=== PATIENT | female | born 1945 | race Two or more races ===

== ENCOUNTER → 2017-04-14 | Outpatient (CLI) | payer MEDICARE, OTHER ==
[2017-04-14 13:30] VITALS: BP 132/62; PULSE 77; RESP 16
--- NOTE | 2017-04-14 13:59 | P.CONS ---
History of Present Illness - Reason for Consult Consult date: 04/14/17 - History of Present Illness This is a 71 years old female with a chronic history of severe low back pain, pain started to see years ago , she denies any initiating event, she reported the pain intensity increases over time, the pain is constant and increases with any activity, and improved with sitting, pain severe intensity of the pain 6/10 , increases with any activity, to 8-9/10, she denies any motor or sensory deficit, she denies any fever or night sweats, no numbness or tingling sensation ,, no change in the bowel movement or urination, pain localized mainly in the low back area, Past Medical History Past Medical History: Chest Pain / Angina, Diabetes Mellitus, GERD/Reflux, Hyperlipidemia, Hypertension Additional Past Medical History / Comment(s): recently tx for uti and stated last 2 days has had dirrhea 1-2 times a day, past stress test wnl,ulcers, arthritis, anxiety History of Any Multi-Drug Resistant Organisms: None Reported Past Surgical History: Section, Cholecystectomy, Hernia Repair, Hysterectomy Additional Past Surgical History / Comment(s): umbilical hernia repair, lt catarct removed-lens implant, laser eye sx, rt carpal tunnel release Past Anesthesia/Blood Transfusion Reactions: No Reported Reaction Past Psychological History: Anxiety Smoking Status: Never smoker Past Alcohol Use History: None Reported Past Drug Use History: None Reported - Past Family History Father Family Medical History: Diabetes Mellitus Mother Family Medical History: Diabetes Mellitus Medications and Allergies Home Medications Medication Instructions Recorded Confirmed Type Cholecalciferol [Vitamin D3] 5,000 unit PO DAILY 10/30/15 04/14/17 History Insulin Glargine [Lantus] 58 unit SQ HS 10/30/15 04/14/17 History Insulin Regular, Human [NovoLIN R] See Protocol SQ AC-TID 10/30/15 04/14/17 History Lovastatin [Mevacor] 20 mg PO HS 10/30/15 04/14/17 History metFORMIN HCL 1,000 mg PO BID 10/30/15 04/14/17 History Acetaminophen Tab [Tylenol Tab] 325 - 650 mg PO BID PRN 11/05/15 04/14/17 History Metoprolol Succinate [Toprol XL] 50 mg PO DAILY 11/05/15 04/14/17 History Omeprazole 20 mg PO DAILY 11/05/15 04/14/17 History Lisinopril [Prinivil] 10 mg PO DAILY #30 tab 11/06/15 04/14/17 Rx traMADol HCL [Ultram] 50 mg PO Q4HR PRN #30 tab 11/06/15 04/14/17 Rx Ibuprofen [Motrin] 800 mg PO DIRECTED PRN 04/14/17 04/14/17 History Allergies Allergy/AdvReac Type Severity Reaction Status Date / Time No Known Allergies Allergy Verified 04/14/17 13:10 Physical Exam Vitals: Vital Signs Pulse Resp BP 04/14/17 13:15 77 16 132/62 Intake and Output 04/13/17 04/14/17 04/14/17 22:59 06:59 14:59 Other: Weight 101.605 kg Patient Weight 04/15/17 06:59 Weight 101.605 kg Social history : not smoker , NO ETOH , NO Illegal drugs use . Review of Systems : 1- Constitutional : no chills , no fever , no night sweats , 2- Ears : no ear discharge , no change in hearing 3-Nose, Mouth ,Throat ; no bleeding gums, no sore throat , no epistaxis , 4-Cardiovascular : Denies chest pain, , no orthopnea , no palpitation 5-Respiratory : Denies cough , no dyspnea , no hemoptysis 6-Gastrointestinal :, no change in bowel habits , no coffee- ground emesis . 7-Genitourinary : No hematuria , no discharge , no incontinence, 8-Musculoskeletal : No gait dysfunction , report low back pain , 9- Neurological : no ataxia , no tremor , no sezure , 10-Psychatric , no suicidal ideation no hallucination 11- Endocrine : no cold intolerence , no polyuria , no polydypsia , 12-Hematologic : no easy bleeding , no easy brusing , 13-Allergic / immunology : no angioedema , no wheezing ,no allergic rhinitis 14-Integumentary : no brttle nails , no change hair / nails , no foot/leg ulcers . Physical Examinations : 1-Constitutional : Cooperative , not in acute distress . 2-HEENT : nech ; supple , no Lymphadenopathy , no Thyromegaly , :eyes , no icterus, no photophobia . ENT : , normal oropharynx , no Thrush 3- Respiratory : Chest clear to auscultations Bilaterally , no wheezing . 4- Cardiovascular : regular rate and rhythem , S1 , S2 , no S3 , no S4. 5- Gastrointestinal: abdomen soft no tenderness , no organomegally . 6- Genitourinary : Defferred . 7-Integumentary : No cellulitis , no ulcers , normal skin turgor , no cyanotic . 8- neurologic : Cranial nerve II to XII intact , no focal neurological deffecit 9-psychatric : alert , oriented X 3 , appropriate affect , intact judgment and insight . 10-Lymphatic : no Lymphadenopathy. 11- musculoskeltal: abnormal gait Lumber spine moter stegnth lower extremities ,thigh and legs 5/5 Right side , 5/5 Left side deep tendon reflexes : normal Knee Jerk , normal ankle Jerk positive lumber facet Loading Test Range of motion of the lumbar spine Flexion 60 degrees, extension 10 degrees strait leg raising test negative bilaterally Fabere test negative bilaterally Results Comments: MRI of the lumbar spine done 12/31/2016= L4 5 facet and severe central canal stenosis, L5-S1 facet arthropathyl, L3 4 bulging disc disease Assessment and Plan Assessment: Assessment and plan= axial low back pain secondary to multifactorial causes, lumbar degenerative disc disease lumbar spinal stenosis and lumbar spondylosis with lumbar facet arthropathy, clinically most of the pain is coming from the facetogenic component, patient could benefit from diagnostic medial branch block lumbar area L3/L4 5/L5-S1 redo the diagnostic block twice and if she had more than 50% improvement in her low back pain ,and we will schedule her to have radiofrequency ablation of the medial branch lumbar area, procedure risk and benefits and alternatives discussed with the patient she agreed with proceeding Time with Patient: Greater than 30
== END | disposition home or self-care (01) ==
LOC: PNWHC3 12:19
PROVIDERS: ATTEND Specialist
DX: G89.29 Other chronic pain (principal); M54.5 Low back pain; M48.061 Spinal stenosis, lumbar region without neurogenic claudication; M51.36 Other intervertebral disc degeneration, lumbar region; M47.816 Spondylosis without myelopathy or radiculopathy, lumbar region; M46.86 Other specified inflammatory spondylopathies, lumbar region; E11.9 Type 2 diabetes mellitus without complications; K21.9 Gastro-esophageal reflux disease without esophagitis; E78.5 Hyperlipidemia, unspecified; I10 Essential (primary) hypertension; F41.9 Anxiety disorder, unspecified; Z90.49 Acquired absence of other specified parts of digestive tract; Z90.710 Acquired absence of both cervix and uterus; Z98.890 Other specified postprocedural states; Z79.4 Long term (current) use of insulin; Z79.84 Long term (current) use of oral hypoglycemic drugs; Z79.1 Long term (current) use of non-steroidal anti-inflammatories (NSAID); Z79.891 Long term (current) use of opiate analgesic; Z79.899 Other long term (current) drug therapy
CPT/HCPCS: 99211

== ENCOUNTER 2017-05-10 06:10 | Day surgery (SDC) | payer MEDICARE, OTHER ==
[2017-05-05 11:37] VITALS: BMI 41.5
[~2017-05-10 06:10] MED LIST: LACTATED RINGERS 1,000 ML IV SCH
[2017-05-10 06:32] VITALS: RESP 18; TEMP 97.8
[2017-05-10 06:45] LABS: Glucose,Whole Blood 181 mg/dL (75-99)
[2017-05-10] MEDS ORDERED: LIDOCAINE 1% 20 ML VIAL (10MG/ML) FOR IV START INTRADERMA ONE (07:04)
--- NOTE | 2017-05-10 07:43 | P.PCN ---
Date of Procedure: 05/10/17 Surgeon: Jose Naik Description of Procedure: PREOPERATIVE DIAGNOSIS : 1- Lumbar spondylosis with Facet Arthropathy without myelopathy . 2- Lumber degenerative disc disease 3-morbid obesity POSTOPERATIVE DIAGNOSIS: 1- Lumbar spondylosis with Facet Arthropathy without myelopathy . 2- Lumber degenerative disc disease 3-morbid obesity PROCEDURE: Diagnostic bilateral L3 -4 , L4 -5 , and L5-S1 medial branch block under fluoroscopy ANESTHESIA: Local with 1% lidocaine; IV sedation with Versed 2 mg . EBL: Negligible COMPLICATION: None. PROCEDURE INDICATION: Chronic low back pain secondary to Facet arthropathy unresponsive to conservative treatment. PROCEDURE DESCRIPTION: the patient was seen and identified in the preop holding area , risks and benefits and possible complications of the procedure and alternatives were discussed with the patient, and the patient agreed to proceed with the procedure and signed the consent. IV was started and vital signs monitored during the procedure and fluoroscopy was used to maximize the benefit and accuracy of the needle placement, sedation was given to decrease patient anxiety, patient was taken to the procedure room and placed in prone position vital signs monitored. The patient was brought into the procedure room and placed in prone position. Skin was prepped with Chloraprep and draped in a sterile manner. Lidocaine 1 % was used to numb the skin up at the target points that were chosen as follows : at the L5-S1 level which corresponds to the dorsal ramus of L5 the target points were at the superior medial aspect of the sacral ala on each side of the spine on the AP view of fluoroscopy, and for theL2, L3 and L4 medial branches the target points were the connection between the transverse process and the superior to go process of L3, L4 and L5 respectively on the oblique views of fluoroscopy. I used 22-gauge 3-1/2 inch Quincke spinal needles for this procedure and after contacting bone at the target points mentioned above I injected 1 mL of a mixture of Kenalog 20 mg +5 MLS of Marcaine 0.5% PF . Patient tolerated procedure well. At the end of the procedure the needles removed and a bandage applied after the skin was cleaned the cleaning solution. patient was then taken to the recovery room in stable condition and monitored in the recovery room for 20-30 minutes and discharged home in stable condition after discharge criteria met .
[2017-05-10] MEDS ORDERED: IV FLUID CONTINUATION 1,000 ML IV ONE (07:46)
[2017-05-10 08:07] VITALS: BP 185/73; PULSE 71
--- NOTE | 2017-05-10 08:15 | FL ---
EXAMINATION TYPE: FL guided pain mgmt statistic DATE OF EXAM: 05/10/2017 FLUOROSCOPY Fluoroscopy time of 6 seconds was used during bilateral lumbar facet blocks. 3 image/s document/s th e procedure.
== END 2017-05-10 08:21 | disposition home or self-care (01) ==
LOC: ORPAIN 06:10
PROVIDERS: ATTEND Anesthesiology
DX: G89.29 Other chronic pain (principal); M47.816 Spondylosis without myelopathy or radiculopathy, lumbar region; M51.36 Other intervertebral disc degeneration, lumbar region; E66.01 Morbid (severe) obesity due to excess calories; Z68.41 Body mass index [BMI] 40.0-44.9, adult; E11.9 Type 2 diabetes mellitus without complications; I10 Essential (primary) hypertension
CPT/HCPCS: 64493; 64494; 64495; J2250; J3301; 99152

== ENCOUNTER → 2017-06-02 | Outpatient (CLI) | payer MEDICARE, OTHER ==
[2017-06-02 11:29] VITALS: BP 172/75; PULSE 77; RESP 16
--- NOTE | 2017-06-02 12:17 | P.PN ---
Progress Note - Text Progress Note Date: 06/02/17 Patient returns for followup for chronic back pain with radiation to both legs with numbness/tingling down to the toes. Patient recently underwent bilateral lumbar MBB, which provided some relief for two days 25% pain relief. Patient continues on no regular pain medications. Patient denies adverse drug effects from medications. Today, pt denies new-onset weakness, bowel/bladder incontinence, or any other signs or symptoms of cauda equina syndrome. There are no signs of acute intoxication, and no indications of medication diversion or overuse. In addition to above, 13-point review of systems is also negative for chest pain , shortness of breath, changes in vision, changes in hearing, new onset weakness , abdominal pain, diarrhea, extreme fatigue, malaise, fever, skin changes, homicidal or suicidal ideation, or bowel or bladder incontinence. Vital Signs: Reviewed in EMR Gen: WDWN, AAOx3, NAD HEENT: NCAT, EOMI, hearing grossly normal Pulm: resp unlabored Abd: soft, NT, ND Neck: supple, trachea midline ROM in flexion lumbar spine: reduced ROM in extension lumbar spine: reduced Lumbar paravertebral tenderness: + Facet loading: + bilateral, L > R SI joint tenderness: neg Yusuf's test: neg Straight leg raise: +RLE Lower extremity: decreased ROM dorsiflexion/plantarflexion strength, hip flexion/extension, and knee flexion/extension secondary to pain Neuro: CN II-XII grossly intact, muscle strength lower extremities PRESERVED Imaging: Reviewed in EMR Assessment: 1. lumbar spinal stenosis 2. lumbar spondylosis 3. chronic pain syndrome Plan: 1. Explanation: Opioid and psychological risk scores were reviewed. Diagnoses , prognoses, and multiple treatment options including but not limited to physical therapy, interventional therapies, adjuvant medical therapies, narcotic medication therapies, and surgery were discussed with the patient and all questions were answered to the patient's satisfaction. 2. Opioid agreement: no opioids prescribed today 3. Counseling: The patient was counseled extensively on BODY MASS INDEX, EXERCISE. Specifically, the patient was instructed regarding the importance of weight control, and exercise in the context of both chronic pain and overall health. 4. Procedures: LESI series L4-L5 if possible 5. Consultations: None 6. Investigations: None 7. Medications: none prescribed 8. Disposition: f/u for PQRS measures: 1-Patient's medications are documented in the chart. 2-Tobacco use is negative 3-Patient has not had a pneumococcal vaccine. 4-Advanced care planning discussed, patient unable to give. 5-Opioid contract NOT signed with the patient. 6-Pain positive, follow-up visit or procedure scheduled 7-Patient's blood pressure measured and documented, and patient will follow up with the primary care due to hypertension. 8-Patient's weight was measured, and body mass index ABOVE the normal limits, and counseling was done. Patient instructed to follow up with PCP. 9-Patient WAS NOT identified as an unhealthy alcohol user.
== END | disposition home or self-care (01) ==
LOC: PNWHC3 11:01
PROVIDERS: ATTEND Anesthesiology
DX: G89.4 Chronic pain syndrome (principal); M48.061 Spinal stenosis, lumbar region without neurogenic claudication; M47.816 Spondylosis without myelopathy or radiculopathy, lumbar region
CPT/HCPCS: 99211

== ENCOUNTER 2017-06-30 06:54 | Day surgery (SDC) | payer MEDICARE, OTHER ==
[2017-06-30] MEDS ORDERED: LIDOCAINE 1% 20 ML VIAL (10MG/ML) FOR IV START INTRADERMA ONE (07:48)
[2017-06-30 07:51] VITALS: RESP 16; TEMP 98
--- NOTE | 2017-06-30 08:22 | P.OP ---
Date of Procedure: 06/30/17 Surgeon: Timbo Nguyễn Description of Procedure: OPERATION: Lumbar epidural steroid injection under fluoroscopic guidance. PREOPERATIVE DIAGNOSES: 1. Lumbar radiculopathy. 2. [Lumbar facet arthropathy.] POSTOPERATIVE DIAGNOSES: 1. Lumbar radiculopathy 2. [Lumbar facet arthropathy]. COMPLICATIONS: None. ANESTHESIA: IV sedation with local infiltration. CONDITION: Stable. Fluoroscopy time: 2 seconds. Today is the first ,second , third lumbar epidural steroid injection for this patient with a history of low back pain. with radiation to the lower extremities , Procedure, risks and benefits discussed with the patient , including but not limited to risk of infection, bleeding ,nerve damage ,and not complete pain relief discussed with the patient and he agreed with proceeding. Sugar was 101. The risks of hyperglycemia were discussed the patient preoperatively. DESCRIPTION OF PROCEDURE: Patient taken to the operating room, placed in prone position. All standard monitors applied to the patient. Conscious sedation was given per hospital protocol. The lumbar spine was prepped and draped in the usual sterile fashion.. Then at L4-5 interlaminar space, local infiltration of the skin and subcutaneous tissue with lidocaine 1% 3 mL. Then a 20-gauge Tuohy needle advanced slowly under fluoroscopy. There was positive loss of resistance to normal saline. Then after negative aspiration, 40 mg of Depo-Medrol was then injected. Patient tolerated the procedure well without any complication. Patient was transferred to the recovery area in stable condition. Patient was then discharged with a escort car driver.
[2017-06-30] MEDS ORDERED: IV FLUID CONTINUATION 700 ML IV ONE (08:28)
--- NOTE | 2017-06-30 08:31 | FL ---
EXAMINATION TYPE: FL guided pain mgmt statistic DATE OF EXAM: 06/30/2017 HISTORY: Pain 1 sec fl time used during lumbar epidural 1 image scanned into pacs doctor mckeon
[2017-06-30 08:40] LABS: Glucose,Whole Blood 87 mg/dL (75-99)
[2017-06-30 08:47] VITALS: BP 142/48; PULSE 61
[2017-06-30 08:51] LABS: Glucose,Whole Blood 101 mg/dL (75-99)
== END 2017-06-30 09:12 | disposition home or self-care (01) ==
LOC: ORPAIN 06:54
PROVIDERS: ATTEND Pain Medicine Pain Medicine
DX: M54.16 Radiculopathy, lumbar region (principal); M46.96 Unspecified inflammatory spondylopathy, lumbar region; E11.9 Type 2 diabetes mellitus without complications
CPT/HCPCS: 62323; J2250; J1030; 99152

== ENCOUNTER → 2019-03-08 | Outpatient (CLI) | payer MEDICARE ==
--- NOTE | 2019-03-08 13:05 | XR ---
EXAMINATION TYPE: XR cervical spine comp DATE OF EXAM: 03/08/2019 COMPARISON: None HISTORY: 73-year-old female cervicalgia, increasing generalized neck pain TECHNIQUE: 6 views FINDINGS: No predental space widening or prevertebral soft tissue swelling. Degenerative change of the C1 dens articulation. The C6-C7 and more caudal levels are excluded by the patient's shoulders. Swimmer's vie w is also limited. More cephalad alignment is maintained. Facet and uncovertebral joint arthropathy. Moderate bony neuroforaminal narrowing on the left C6-C7 on both sides. Mild on the right at C3-C4, C 4-C5, and C5-C6. IMPRESSION: 1. C6-C7 and below is obscured by the patient's shoulders and not adequately assessed. The remaining alignment higher up is preserved. 2. Facet and uncovertebral joint arthropathy with variable neural foraminal stenoses as outlined suzy ace
== END | disposition home or self-care (01) ==
LOC: RADXRYALE 11:48
PROVIDERS: ATTEND Physician Assistant Medical
DX: M48.02 Spinal stenosis, cervical region (principal); M46.92 Unspecified inflammatory spondylopathy, cervical region
CPT/HCPCS: 72050

== ENCOUNTER → 2019-04-06 | Outpatient (CLI) | payer MEDICARE ==
--- NOTE | 2019-04-06 09:39 | MR ---
EXAMINATION TYPE: MR cervical spine wo con DATE OF EXAM: 04/06/2019 COMPARISON: HISTORY: neck pain TECHNIQUE: Multiplanar, multisequence images of the cervical spine were acquired. C2-C3: No evidence for degenerative disc disease. No disc bulge/herniation or protrusion. No Canal stenosis. Foramina are patent bilaterally. C3-C4: Mild central disc bulging capped by spur. Mild facet arthropathy. Mild central canal stenosis with no evidence of foraminal encroachment. C4-C5: Degenerative disc disease with disc herniation resulting in mild anterior compression spinal c ord. Hypertrophy of the ligamentum flavum contributes to moderate to severe canal stenosis. Facet art hropathy and uncovertebral joint hypertrophy with mild bilateral foraminal encroachment. C5-C6: Central disc herniation resulting in mild anterior compression the spinal cord. Could not excl ude a degree of abnormal signal within the spinal cord at this level. As results in canal stenosis. N eural foramina patent. C6-C7: Degenerative disc disease but no disc herniation or canal stenosis. Neural foramina patent. C7-T1: No evidence for degenerative disc disease. No disc bulge/herniation or protrusion. No Canal stenosis. Foramina are patent bilaterally. Cervical segments are intact. There is normal alignment. There are evidence of thyroid cysts noted. Assessment of abnormal signal in spinal cord limited due to motion. Suspicion for abnormal signal cor d at C5-C6 which could been the basis of compressive myelitis. Sagittal disc bulging or protrusions o f the thoracic spine noted. Cerebellar tonsils low-lying in position at the level the foramen magnum. IMPRESSION: 1. Multilevel degenerative disc disease with disc herniation at C4-5 resulting in severe canal stenos is and anterior compression of the spinal cord. 2. Central disc herniation C5-C6 results in mild anterior compressions of the spinal cord. Abnormal s ignal within the cord at this level is not excluded. Degree of compressive myelitis would be in the d ifferential diagnosis. 3. Central disc bulge or small protrusion C3-C4 with mild central canal stenosis. 4. Multiple thyroid nodules. 5. There appears to be evidence of sagittal thoracic spine disc bulging or protrusions. Recommend fol low-up thoracic spine MRI. 6. Low-lying cerebellar tonsils. A [place] level critical message alert has been initiated for DANIKA Lin via the [employer] Critical Results System on 04/06/2019 9:35 AM. This message alert has been sent to DANIKA Lin via the preferences provided by the clinician for the receipt of Radiology Critical Find ings. Message ID [id number].
== END | disposition home or self-care (01) ==
LOC: RADMRIMAIN 08:35
PROVIDERS: ATTEND Physician Assistant Medical
DX: M48.02 Spinal stenosis, cervical region (principal); M50.221 Other cervical disc displacement at C4-C5 level; M50.321 Other cervical disc degeneration at C4-C5 level; E04.2 Nontoxic multinodular goiter
CPT/HCPCS: 72141

== ENCOUNTER → 2020-06-18 | Outpatient (CLI) | payer MEDICARE ==
--- NOTE | 2020-06-18 14:50 | MR ---
EXAMINATION TYPE: MR lumbar spine wo con DATE OF EXAM: 06/18/2020 COMPARISON: 12/31/2016 HISTORY: 75-year-old female Chronic LBP, LLE radiculopathy TECHNIQUE: Multiplanar, multisequence images of the lumbar spine were acquired. FINDINGS: Vertebral body heights are preserved. Hypertrophic facet arthropathy mid to lower lumbar spine with degenerative grade 1 anterolisthesis at L4-L5 is unchanged. Mild multilevel degenerative disc disease with desiccated and bulging discs at multiple levels. Ligamentum flavum thickening throughout. 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 Mild heterogeneous marrow signal without suspicious bone marrow replacement. At T12-L1, mild bulging disc without significant canal or foraminal stenosis. At L1-L2, bulging disc with ligamentum flavum thickening. Changes result in moderate narrowing of the spinal canal, slightly progressed from 2017, with minimal inferior neural foraminal narrowing on bot h sides. At L2-L3, bulging disc with ligamentum flavum thickening and facet arthropathy. Changes result in mod erate to severe spinal canal stenosis, slightly progressed from 2017. Mild bilateral neuroforaminal n arrowing. At L3-L4, disc bulge with ligamentum flavum thickening and facet arthropathy. Changes result in moder ate to severe spinal canal stenosis, similar to prior. Moderate right and mild left neural foraminal stenosis. At L4-L5, advanced hypertrophic facet arthropathy with severe ligamentum flavum thickening, grade 1 a nterolisthesis, disc bulge. Changes result in severe focal spinal canal stenosis, relatively similar to prior exam. Moderate right and mild left neural foraminal stenosis. At L5-S1, facet arthropathy with a mild right neuroforaminal narrowing. No spinal canal stenosis. No prevertebral or paravertebral soft tissue abnormality seen. IMPRESSION: 1. Mild multilevel degenerative disc disease with desiccated and bulging discs. 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 2. Ligamentum flavum thickening and hypertrophic facet arthropathy. Degenerative grade 1 anterolisthe sis at L4-L5. 3. Changes result in a severe focal spinal canal stenosis at L4-L5, similar to prior. Moderate to sev ere spinal canal stenosis at L3-L4 is also similar. Moderate to severe canal narrowing at L2-L3 sligh tly progressed as is a moderate narrowing of the spinal canal at L1-L2. 4. Variable moderate neuroforaminal stenoses as outlined above, particularly on the right at L3-L4 an d L4-L5.
== END | disposition home or self-care (01) ==
LOC: RADMRIMAIN 12:28
PROVIDERS: ATTEND Orthopaedic Surgery Orthopaedic Surgery of the Spine
DX: M48.061 Spinal stenosis, lumbar region without neurogenic claudication (principal); M51.16 Intervertebral disc disorders with radiculopathy, lumbar region; M43.16 Spondylolisthesis, lumbar region; M47.26 Other spondylosis with radiculopathy, lumbar region; E66.9 Obesity, unspecified; M50.321 Other cervical disc degeneration at C4-C5 level; M47.812 Spondylosis without myelopathy or radiculopathy, cervical region; E11.9 Type 2 diabetes mellitus without complications; M16.0 Bilateral primary osteoarthritis of hip; M50.221 Other cervical disc displacement at C4-C5 level
CPT/HCPCS: 72148

== ENCOUNTER → 2020-08-12 | Outpatient (CLI) | payer MEDICARE ==
--- NOTE | 2020-08-12 16:40 | BD ---
EXAMINATION TYPE: Axial Bone Density DATE OF EXAM: 08/12/2020 COMPARISON: NONE CLINICAL HISTORY: Height: 61.5 IN Weight: 209 LBS FRAX RISK QUESTIONS: Secondary Osteoporosis: 3. Menopause before 45: YES PARTIAL HYST AE 31 RISK FACTORS HISTORY OF: Active: YES Diet low in dairy products/other sources of calcium: YES Postmenopausal woman: PARTIAL HYST AGE 31 Frequent falls: YES TRIP/STUMBLES MEDICATIONS: Additional Medications: VIT D, INSULIN, HIGH BLOOD PRESSURE MEDS, PAIN MEDS, EXAM MEASUREMENTS: Bone mineral densitometry was performed using the [employer] System. Bone mineral density as measured about the Lumbar spine is: ----- L1-L4(G/cm2): 1.315 T Score Values are as follows: ----- L2: 1.2 ----- L3: 0.9 ----- L4: 1.4 ----- L1-L4: 1.1 Bone mineral density BASELINE Bone mineral density about the R hip (g/cm2): 0.872 Bone mineral density about the L hip (g/cm2): 0.968 T Score values are as follows: -----R Neck: -1.2 -----L Neck: -0.5 -----R Total: -0.4 -----L Total: 0.3 Bone mineral density BASELINE IMPRESSION: Normal bone mineral density. NOTE: T-SCORE=SD OF THE YOUNG ADULT MEAN.
--- NOTE | 2020-08-16 11:02 | MM ---
Reason for exam: screening (asymptomatic). Last mammogram was performed 12 years and 6 months ago. History: Patient is postmenopausal. Took estrogen for 21 years beginning at age 39. Physical Findings: A clinical breast exam by your physician is recommended on an annual basis and results should be correlated with mammographic findings. MG 3D Screening Mammo W/Cad Bilateral CC and MLO view(s) were taken. Prior study comparison: February 24, 2008, bilateral digital screening mammogram. There are scattered fibroglandular densities. Bilateral calcifications unchanged. ASSESSMENT: Benign, BI-RAD 2 RECOMMENDATION: Routine screening mammogram of both breasts in 1 year.
== END | disposition home or self-care (01) ==
LOC: RADMAMWWP 11:11
PROVIDERS: ATTEND Family Medicine
DX: Z12.31 Encounter for screening mammogram for malignant neoplasm of breast (principal); Z78.0 Asymptomatic menopausal state; M81.8 Other osteoporosis without current pathological fracture
CPT/HCPCS: 77063; 77067; 77080

== ENCOUNTER → 2021-09-18 | Outpatient (CLI) | payer MEDICARE ==
--- NOTE | 2021-09-19 15:40 | MM ---
Reason for Exam: Screening (asymptomatic). Last mammogram was performed 1 year(s) and 1 month(s) ago. Patient History: Menarche at age 11. First Full-Term at age 16. Left ovary removed at age 39. Right ovary removed at age 39. Hysterectomy at age 39. Postmenopausal. Estrogen for 21 years from age 39 until age 59. Risk Values: Phyllis 5 year model risk: 1.4%. NCI Lifetime model risk: 2.8%. Prior Study Comparison: 10/13/2006 Bilateral Screening Mammogram, [facility]. 02/24/2008 Bilateral Screening Mammogram, [facility]. 08/12/2020 Bilateral Screening Mammogram, [facility]. Tissue Density: The breast tissue is heterogeneously dense. This may lower the sensitivity of mammography. Findings: Analyzed By CAD. There is no suspicious group of microcalcifications or new suspicious mass in either breast. Benign-appearing bilateral calcifications. No significant change from prior examination. Overall Assessment: Benign, BI-RAD 2 Management: Screening Mammogram of both breasts in 1 year. A clinical breast exam by your physician is recommended on an annual basis and results should be correlated with mammographic findings. Electronically signed and approved by: Jono Casarez D.O.
== END | disposition home or self-care (01) ==
LOC: RADMAMWWP 16:26
PROVIDERS: ATTEND Family Medicine
DX: Z12.31 Encounter for screening mammogram for malignant neoplasm of breast (principal); Z78.0 Asymptomatic menopausal state
CPT/HCPCS: 77063; 77067

== ENCOUNTER 2022-01-08 18:15 | Emergency (ER) | payer MEDICARE ==
[2022-01-08 18:32] VITALS: TEMP 98.2
[2022-01-08] MEDS ORDERED: ONDANSETRON 4 MG/2 ML VIAL IVP STA (18:46)
[2022-01-08] MEDS ORDERED: SODIUM CHLORIDE 0.9% 1,000 ML IV STA (18:46)
--- NOTE | 2022-01-08 18:49 | ED ---
General Adult HPI - General Chief complaint: Dizziness Stated complaint: Dizziness,Vomiting Time Seen by Provider: 01/08/22 18:20 Source: patient Mode of arrival: ambulatory Limitations: no limitations - History of Present Illness Initial comments: Dictation was produced using [employer] dictation software. please excuse any grammatical, word or spelling errors. Chief Complaint: 76-year-old male presents emergency department for dizziness and URI type symptoms History of Present Illness: Patient is a 76-year-old female presents emergency department for URI type symptoms for the last 3 days. Patient has had mild headache, fatigue, dizziness and diarrhea for the last 3 days. Patient was exposed her her son and her grandson will have had flulike symptoms. Patient has any chest pain shortness of breath. Denies any fever. Patient allegedly has been worked up outpatient for anemia. Daughter at the bedside reports that patient had low blood pressure at home. She states that the top number was 108. Patient has history of hypertension and 108 is very low for her. The ROS documented in this emergency department record has been reviewed and confirmed by me. Those systems with pertinent positive or negative responses have been documented in the HPI. All other systems are other negative and/or noncontributory. PHYSICAL EXAM: General Impression: Alert and oriented x3, not in acute distress HEENT: Normocephalic atraumatic, extra-ocular movements intact, pupils equal and reactive to light bilaterally, mucous membranes moist. Cardiovascular: Heart regular rate and rhythm Chest: Able to complete full sentences, no retractions, no tachypnea Abdomen: abdomen soft, non-tender, non-distended, no organomegaly Musculoskeletal: Pulses present and equal in all extremities, no peripheral edema Motor: no focal deficits noted Neurological: CN II-XII grossly intact, no focal motor or sensory deficits noted Skin: Intact with no visualized rashes Psych: Normal affect and mood ED course: 76-year-old female presents to the emergency department for URI type symptoms for the last 3 days. Vital signs upon arrival are within acceptable limits. Laboratory evaluation obtained. CBC unremarkable hemoglobin is 10.8 with surround her baseline. Metabolic panel is unremarkable. Abdominal labs negative. Influenza A positive. Patient observed in emergency department for approximately one hour and 45 minutes. Reevaluated bedside at 8:00 PM patient given fluids and anti-nausea medications. Patient also given Toradol. Patient is a amenable for discharge. Patient's candidate for Tamiflu given that she's been symptomatic for 3 days. Patient given dose today and prescription for the next 5 days My EKG interpretation: Ventricular rate 71, sinus rhythm,. 166, QS 98, QTC 400. No MO prolongation, no QTC prolongation, no ST or T-wave changes noted. EKG compared to to her first 2016 showing no changes. Overall, this EKG is unremarkable - Related Data Home Medications Medication Instructions Recorded Confirmed Cholecalciferol [Vitamin D3 (25 5,000 unit PO WEEKLY 10/30/15 06/30/17 Mcg = 1000 Iu)] Insulin Glargine [Lantus Vial] 58 unit SQ HS 10/30/15 06/30/17 Insulin Regular, Human [NovoLIN R] See Protocol SQ AC-TID 10/30/15 06/30/17 Lovastatin [Mevacor] 20 mg PO HS 10/30/15 06/30/17 metFORMIN HCL [Glucophage] 1,000 mg PO BID 10/30/15 06/30/17 Acetaminophen Tab [Tylenol Tab] 325 - 650 mg PO BID PRN 11/05/15 06/30/17 Omeprazole 20 mg PO DAILY 11/05/15 06/30/17 Ibuprofen [Motrin] 800 mg PO DIRECTED PRN 04/14/17 06/30/17 Methenamine Hippurate [Hiprex] 1 gm PO BID 05/05/17 06/30/17 lisinopriL [Prinivil] 20 mg PO QAM 05/05/17 06/30/17 Previous Rx's Medication Instructions Recorded traMADol HCL [Ultram] 50 mg PO Q4HR PRN #30 tab 11/06/15 Oseltamivir [Tamiflu] 75 mg PO Q12HR 5 Days #10 cap 01/08/22 Allergies Allergy/AdvReac Type Severity Reaction Status Date / Time No Known Allergies Allergy Verified 01/08/22 18:32 Review of Systems ROS Statement: Those systems with pertinent positive or pertinent negative responses have been documented in the HPI. ROS Other: All systems not noted in ROS Statement are negative. Past Medical History Past Medical History: Chest Pain / Angina, Diabetes Mellitus, GERD/Reflux, Hyperlipidemia, Hypertension Additional Past Medical History / Comment(s): CHRONIC UTI. Ulcers. Arthritis. Anxiety. History of Any Multi-Drug Resistant Organisms: None Reported Past Surgical History: Section, Cholecystectomy, Hernia Repair, Hysterectomy Additional Past Surgical History / Comment(s): Umbilical hernia repair. Lt catarct removed-lens implant. Laser eye sx. Rt carpal tunnel release Past Anesthesia/Blood Transfusion Reactions: No Reported Reaction Past Psychological History: Anxiety Smoking Status: Never smoker Past Alcohol Use History: None Reported Past Drug Use History: None Reported - Past Family History Father Family Medical History: Diabetes Mellitus Mother Family Medical History: No Reported History General Exam Limitations: no limitations Course Vital Signs 01/08/22 01/08/22 18:28 19:25 Temperature 98.2 F Pulse Rate 71 70 Respiratory 18 18 Rate Blood Pressure 169/65 166/62 O2 Sat by Pulse 98 97 Oximetry Medical Decision Making - Lab Data Result diagrams: 01/08/22 19:16 01/08/22 19:16 Lab Results 01/08/22 01/08/22 01/08/22 Range/Units 18:33 19:16 19:16 WBC 7.5 (3.8-10.6) k/uL RBC 3.70 L (3.80-5.40) m/uL Hgb 10.8 L (11.4-16.0) gm/dL Hct 33.4 L (34.0-46.0) % MCV 90.4 D (80.0-100.0) fL MCH 29.3 (25.0-35.0) pg MCHC 32.4 (31.0-37.0) g/dL RDW 13.3 (11.5-15.5) % Plt Count 225 (150-450) k/uL MPV 8.5 Neutrophils % 70 % Lymphocytes % 20 % Monocytes % 5 % Eosinophils % 2 % Basophils % 0 % Neutrophils # 5.3 (1.3-7.7) k/uL Lymphocytes # 1.5 (1.0-4.8) k/uL Monocytes # 0.4 (0-1.0) k/uL Eosinophils # 0.1 (0-0.7) k/uL Basophils # 0.0 (0-0.2) k/uL Sodium 134 L (137-145) mmol/L Potassium 5.1 (3.5-5.1) mmol/L Chloride 103 (98-107) mmol/L Carbon Dioxide 21 L (22-30) mmol/L Anion Gap 10 mmol/L BUN 31 H (7-17) mg/dL Creatinine 1.50 H (0.52-1.04) mg/dL Est GFR (CKD-EPI)AfAm 39 (>60 ml/min/1.73 sqM) Est GFR (CKD-EPI)NonAf 34 (>60 ml/min/1.73 sqM) Glucose 278 H (74-99) mg/dL Calcium 9.6 (8.4-10.2) mg/dL Total Bilirubin 0.2 (0.2-1.3) mg/dL AST 24 (14-36) U/L ALT 22 (4-34) U/L Alkaline Phosphatase 81 (38-126) U/L Total Protein 7.3 (6.3-8.2) g/dL Albumin 4.5 (3.5-5.0) g/dL Influenza Type A (PCR) Detected A (Not Detectd) Influenza Type B (PCR) Not Detected (Not Detectd) RSV (PCR) Not Detected (Not Detectd) SARS-CoV-2 (PCR) Not Detected (Not Detectd) Disposition Clinical Impression: Influenza Disposition: HOME SELF-CARE Condition: Fair Instructions (If sedation given, give patient instructions): Influenza (ED) Prescriptions: Oseltamivir [Tamiflu] 75 mg PO Q12HR 5 Days #10 cap Is patient prescribed a controlled substance at d/c from ED?: No Referrals: Nonstaff,Physician [Primary Care Provider] - 1-2 days Time of Disposition: 20:03
[2022-01-08 19:31] LABS: Basophils % (A) 0 %; Eosinophils # (A) 0.1 k/uL (0-0.7); Eosinophils % (A) 2 %; HCT 33.4 % (34.0-46.0); HGB 10.8 gm/dL (11.4-16.0); Lymphocytes # (A) 1.5 k/uL (1.0-4.8); Lymphocytes % (A) 20 %; MCH 29.3 pg (25.0-35.0); MCHC 32.4 g/dL (31.0-37.0); Mean Platelet Volume 8.5; Monocytes # (A) 0.4 k/uL (0-1.0); Monocytes % (A) 5 %; Neutrophils # (A) 5.3 k/uL (1.3-7.7); Neutrophils % (A) 70 %; Platelet Count 225 k/uL (150-450); RDW 13.3 % (11.5-15.5); WBC 7.5 k/uL (3.8-10.6)
[2022-01-08 19:41] LABS: Albumin 4.5 g/dL (3.5-5.0); Calcium 9.6 mg/dL (8.4-10.2); Potassium 5.1 mmol/L (3.5-5.1); Total Bilirubin 0.2 mg/dL (0.2-1.3); Total Protein 7.3 g/dL (6.3-8.2)
[2022-01-08 19:43] LABS: MCV 90.4 fL (80.0-100.0)
[2022-01-08] MEDS ORDERED: OSELTAMIVIR 75 MG CAP PO STA (19:50)
[2022-01-08] MEDS ORDERED: KETOROLAC 15 MG/ML 1 ML VIAL IVP STA (20:01)
[2022-01-08 20:56] VITALS: BP 168/69; PULSE 76; RESP 16
== END 2022-01-08 20:55 | disposition home or self-care (01) ==
LOC: EC 18:15
DX: J11.1 Influenza due to unidentified influenza virus with other respiratory manifestations (principal); E11.9 Type 2 diabetes mellitus without complications; I10 Essential (primary) hypertension; E78.5 Hyperlipidemia, unspecified; K21.9 Gastro-esophageal reflux disease without esophagitis; F41.9 Anxiety disorder, unspecified; Z79.4 Long term (current) use of insulin; Z79.899 Other long term (current) drug therapy; Z20.822 Contact with and (suspected) exposure to COVID-19
CPT/HCPCS: 36415; 93005; 80053; 85025; 87636; 99284; 96374; 96375; 96361 ×2; J2405; J1885; 99283

== ENCOUNTER 2022-01-16 06:05 | Day surgery (SDC) | payer MEDICARE ==
[2022-01-15 11:37] VITALS: BMI 38.2
[2022-01-16 06:32] VITALS: RESP 16; TEMP 97
[2022-01-16] MEDS ORDERED: LIDOCAINE 1% (10MG/ML) FOR IV START INTRADERMA ONE (06:32)
[2022-01-16 06:44] LABS: Glucose,Whole Blood 83 mg/dL (70-110)
[2022-01-16] MEDS ORDERED: LIDOCAINE 2% INJ 20 MG/ML (2 ML VIAL) ONE (07:00)
[2022-01-16] MEDS ORDERED: PROPOFOL 10 MG/ML 20 ML VIAL IV ONE (07:00)
--- NOTE | 2022-01-16 07:21 | P.PCN ---
Date of Procedure: 01/16/22 Procedure(s) Performed: Brief history: Patient is a pleasant 76-year-old female scheduled for an elective upper endoscopy as well as colonoscopy as a part of evaluation of GERD and Hemoccult- positive stool. Procedure performed: Esophagogastroduodenoscopy with biopsy Colonoscopy with biopsy Preoperative diagnosis: GERD Hemoccult-positive stool Anesthesia: [facility] [place] Procedure: After informed consent was obtained from the patient was brought into the endoscopy unit and IV sedation was administered by anesthesia under continuous monitoring. Initially upper endoscopy was done. The Olympus GF 160 video endoscope was inserted inserted into the mouth and esophagus intubated without any difficulty and was gradually advanced into the stomach and duodenum and carefully examined. The bulb and second part of the duodenum appeared normal. The scope was then withdrawn into the stomach adequately insufflated with air and upon careful examination the antrum had mild gastritis and biopsies were done from this area. The body, cardia and fundus appeared normal. The scope was then withdrawn into the esophagus. The GE junction was located at 40 cm to the incisors. It appeared regular with no erythema erosions or ulcerations. Rest of the esophagus appeared normal. Patient tolerated the procedure well. At this time the patient continued to remain sedation. Initial digital rectal examination was normal. Olympus CF 160 video colonoscope was then inserted into the rectum and gradually advanced to the cecum without any difficulty. Careful examination was performed as the scope was gradually being withdrawn. The prep was excellent. The cecum, ascending colon, appeared normal. In the transverse colon there was a 3 mm sessile polyp removed by cold biopsy. Rest of the transverse colon, descending colon, sigmoid colon and rectum appeared normal. Retroflexion was performed in the rectum and no lesions were noted. Patient tolerated the procedure well. Impression: 1. Upper endoscopy revealed mild antral gastritis but no evidence of esophagitis or peptic ulcer disease 2. Colonoscopy revealed a 3 mm transverse colon polyp status post cold biopsy and the rest of the colon appeared normal. Recommendations: Findings of this examination were discussed with the patient as well as her family. She was advised to follow with the biopsy results. If the biopsies reveal adenoma she can have episodes in 5 years. In the meantime she'll continue with omeprazole 20 mg daily and follow antireflux measures.
[2022-01-16 07:44] VITALS: BP 119/64; PULSE 79
== END 2022-01-16 08:23 | disposition home or self-care (01) ==
LOC: ORWHC2ENDO 06:05
PROVIDERS: ATTEND Internal Medicine Gastroenterology
DX: K63.5 Polyp of colon (principal); K29.50 Unspecified chronic gastritis without bleeding; K21.9 Gastro-esophageal reflux disease without esophagitis
CPT/HCPCS: 88305; 45380; 43239; J2704; J2001

== ENCOUNTER → 2022-06-13 | Outpatient (CLI) | payer MEDICARE ==
--- NOTE | 2022-06-13 10:11 | MR ---
EXAMINATION TYPE: MR lumbar spine wo con DATE OF EXAM: 06/13/2022 COMPARISON: MRI lumbar spine 06/18/2020 HISTORY: Low back pain TECHNIQUE: Multiplanar, multisequence images of the lumbar spine were acquired without IV contrast. FINDINGS: Lumbar segments are intact. No paraspinal masses are identified. Conus medullaris has a normal appe arance. Stable grade 1 anterolisthesis of L4 on L5. 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 T12-L1: No significant central canal or neural foraminal stenosis. L1-L2: Broad-based disc bulge with ligamentum flavum buckling resulting in moderate central canal gallo nosis which is similar to prior exam. Mild bilateral neural foraminal stenosis. L2-L3: Broad-based disc bulge with ligamentum flavum buckling and facet arthropathy redemonstrated. R esults in moderate to severe spinal canal stenosis which is stable to prior examination. Mild bilater al neural foraminal narrowing. L3-L4: Disc bulge with facet arthropathy and ligamentum flavum buckling demonstrated. Results in mode rate to severe spinal canal stenosis which is similar to prior exam. Moderate right and mild left ritu ral foraminal stenosis. L4-L5: Grade 1 anterolisthesis with uncovering of the disc. Broad-based disc bulge with advanced hype rtrophic facet arthropathy and ligamentum flavum buckling redemonstrated. Results in severe focal spi nal canal stenosis which is similar to prior exam. Moderate right and mild left neural foraminal sten osis. L5-S1: No canal stenosis is present. No disc herniation. Ligamentum flavum buckling redemonstrated. Bilateral facet arthropathy with mild right neural foraminal stenosis. The left neural foramen is pat ent. IMPRESSION: * Overall similar examination to prior MRI lumbar spine on 06/18/2020. * Moderate multilevel degenerative disc disease redemonstrated with multilevel ligament flavum buckl ing and facet arthropathy. * Similar severe focal spinal stenosis at L4-L5, moderate to severe spinal canal stenosis at L3-L4 a nd moderate to severe spinal canal stenosis at L2-L3 and moderate spinal canal stenosis at L1-L2. * Varying degrees of neural foraminal stenosis is described above.
== END | disposition home or self-care (01) ==
LOC: RADMRIMAIN 09:05
PROVIDERS: ATTEND Orthopaedic Surgery Orthopaedic Surgery of the Spine
DX: M51.36 Other intervertebral disc degeneration, lumbar region (principal); M99.73 Connective tissue and disc stenosis of intervertebral foramina of lumbar region
CPT/HCPCS: 72148

== ENCOUNTER → 2022-09-30 | Outpatient (CLI) | payer MEDICARE ==
--- NOTE | 2022-10-01 16:20 | MM ---
Reason for Exam: Screening (asymptomatic). Last mammogram was performed 1 year(s) and 1 month(s) ago. Patient History: Menarche at age 11. First Full-Term at age 16. Left ovary removed at age 39. Right ovary removed at age 39. Hysterectomy at age 39. Postmenopausal. Estrogen for 21 years from age 39 until age 59. Risk Values: Phyllis 5 year model risk: 1.4%. NCI Lifetime model risk: 2.7%. Prior Study Comparison: 02/24/2008 Bilateral Screening Mammogram, [facility]. 08/12/2020 Bilateral Screening Mammogram, [facility]. 09/18/2021 Bilateral MG 3D screening mammo w/cad, [facility]. Tissue Density: The breast tissue is heterogeneously dense. This may lower the sensitivity of mammography. Findings: Analyzed By CAD. Benign vascular and secretory calcifications on both sides redemonstrated. No significant change from prior exams. Overall Assessment: Benign, BI-RAD 2 Management: Screening Mammogram of both breasts in 1 year. . Patient should continue monthly self-breast exams. A clinical breast exam by your physician is recommended on an annual basis. This exam should not preclude additional follow-up of suspicious palpable abnormalities. Note on Phyllis scores and lifetime risk: 1. A Phyllis score greater than 3% is considered moderate risk. If this is the case, consider specialist referral to assess eligibility for a risk reducing agent. 2. If overall lifetime risk for the development of breast cancer is 20% or higher, the patient may qualify for future screening with alternating mammogram and breast MRI. Electronically signed and approved by: Vipin Rios M.D. Radiologist
== END | disposition home or self-care (01) ==
LOC: RADMAMWWP 11:02
PROVIDERS: ATTEND Family Medicine
DX: Z12.31 Encounter for screening mammogram for malignant neoplasm of breast (principal); Z78.0 Asymptomatic menopausal state
CPT/HCPCS: 77063; 77067

== ENCOUNTER 2022-12-18 01:22 | Observation (INO) | payer MEDICARE, OTHER ==
[2022-12-18 02:15] LABS: Basophils % (A) 0 %; Eosinophils # (A) 0.2 k/uL (0-0.7); Eosinophils % (A) 3 %; HCT 36.6 % (34.0-46.0); HGB 11.9 gm/dL (11.4-16.0); Lymphocytes # (A) 2.4 k/uL (1.0-4.8); Lymphocytes % (A) 33 %; MCH 29.7 pg (25.0-35.0); MCHC 32.5 g/dL (31.0-37.0); MCV 91.2 fL (80.0-100.0); Mean Platelet Volume 8.2; Monocytes # (A) 0.5 k/uL (0-1.0); Monocytes % (A) 6 %; Neutrophils # (A) 4.2 k/uL (1.3-7.7); Neutrophils % (A) 55 %; Platelet Count 223 k/uL (150-450); RBC 4.01 m/uL (3.80-5.40); RDW 13.2 % (11.5-15.5); WBC 7.5 k/uL (3.8-10.6)
[2022-12-18 02:17] LABS: ALT 25 U/L (4-34); AST 29 U/L (14-36); African American GFR (CKD) 89 (>60 ml/min/1.73 sqM); Albumin 4.1 g/dL (3.5-5.0); Alkaline Phosphatase 76 U/L (38-126); Anion Gap 9 mmol/L; Blood Urea Nitrogen 23 mg/dL (7-17); Calcium 9.9 mg/dL (8.4-10.2); Carbon Dioxide 22 mmol/L (22-30); Chloride 108 mmol/L (98-107); Glucose 178 mg/dL (74-99); Magnesium 1.8 mg/dL (1.6-2.3); Non-African American GFR(CKD) 77 (>60 ml/min/1.73 sqM); Sodium 139 mmol/L (137-145); Total Bilirubin 0.3 mg/dL (0.2-1.3); Total Protein 7.3 g/dL (6.3-8.2)
[2022-12-18 02:20] LABS: Partial Thromboplastin Time 23.7 sec (22.0-30.0); Prothrombin Time 10.7 sec (10.0-12.5)
[2022-12-18 02:25] LABS: NT-Pro-B-Type Natriuretic Pept 341 pg/mL
--- NOTE | 2022-12-18 03:13 | ED ---
Chest Pain HPI - General Chief Complaint: Chest Pain Stated Complaint: Chest Tightness, High BP Time Seen by Provider: 12/18/22 01:30 Source: patient Mode of arrival: ambulatory Limitations: no limitations - History of Present Illness Initial Comments: 77-year-old female past medical history of hypertension, hyperlipidemia, diabetes who presents to the emergency department reporting chest pain. States her pain started around 11 PM while watching TV. Describes it as a pressure sensation in the middle portion of her chest. Denies associated shortness of breath. No nausea or vomiting. No ripping or tearing sensation to her back. Denies any fevers. No chills or cough. Denies previous cardiac history. Pain was present for approximately an hour before it self resolved. She did not take anything for her pain. She did measure her blood pressure at home and noted it to be significantly high. She does take lisinopril twice daily. Denies any missed doses. No other alleviating, resuscitating or modifying factors - Related Data Home Medications Medication Instructions Recorded Confirmed Insulin Glargine [Lantus Vial] 58 unit SQ DAILY 10/30/15 12/18/22 Lovastatin [Mevacor] 20 mg PO HS 10/30/15 12/18/22 Omeprazole 20 mg PO DAILY 11/05/15 12/18/22 Methenamine Hippurate [Hiprex] 1 gm PO BID 05/05/17 12/18/22 Cholecalciferol [Vitamin D3 (25 25 mcg PO DAILY 12/18/22 12/18/22 Mcg = 1000 Iu)] Ergocalciferol [Vitamin D2 (1250 1,250 mcg PO Q7D 12/18/22 12/18/22 Mcg = 28427 Iu)] Gabapentin [Neurontin] 300 mg PO BID 12/18/22 12/18/22 allopurinoL 200 mg PO HS 12/18/22 12/18/22 Previous Rx's Medication Instructions Recorded amLODIPine [Norvasc] 10 mg PO DAILY 30 Days #30 tab 12/19/22 lisinopriL [Zestril] 20 mg PO HS 30 Days #30 tab 12/19/22 Allergies Allergy/AdvReac Type Severity Reaction Status Date / Time No Known Allergies Allergy Verified 12/18/22 07:18 Review of Systems ROS Statement: Those systems with pertinent positive or pertinent negative responses have been documented in the HPI. ROS Other: All systems not noted in ROS Statement are negative. Past Medical History Past Medical History: Chest Pain / Angina, Diabetes Mellitus, GERD/Reflux, Hyperlipidemia, Hypertension Additional Past Medical History / Comment(s): CHRONIC UTI. Ulcers. Arthritis. Anxiety. History of Any Multi-Drug Resistant Organisms: None Reported Past Surgical History: Section, Cholecystectomy, Hernia Repair, Hysterectomy Additional Past Surgical History / Comment(s): Umbilical hernia repair. Lt catarct removed-lens implant. Laser eye sx. Rt carpal tunnel release Past Anesthesia/Blood Transfusion Reactions: No Reported Reaction Past Psychological History: Anxiety Smoking Status: Never smoker Past Alcohol Use History: None Reported Past Drug Use History: None Reported - Past Family History Father Family Medical History: Diabetes Mellitus Mother Family Medical History: No Reported History General Exam Limitations: no limitations General appearance: alert, in no apparent distress Head exam: Present: atraumatic, normocephalic, normal inspection Eye exam: Present: normal appearance, PERRL, EOMI. Absent: scleral icterus, conjunctival injection, periorbital swelling ENT exam: Present: normal exam, mucous membranes moist Neck exam: Present: normal inspection. Absent: tenderness, meningismus, lymphadenopathy Respiratory exam: Present: normal lung sounds bilaterally. Absent: respiratory distress, wheezes, rales, rhonchi, stridor Cardiovascular Exam: Present: regular rate, normal rhythm, normal heart sounds. Absent: systolic murmur, diastolic murmur, rubs, gallop, clicks GI/Abdominal exam: Present: soft, normal bowel sounds. Absent: distended, tenderness, guarding, rebound, rigid Extremities exam: Present: normal inspection, full ROM, normal capillary refill. Absent: tenderness, pedal edema, joint swelling, calf tenderness Back exam: Present: normal inspection Neurological exam: Present: alert, oriented X3, CN II-XII intact Psychiatric exam: Present: normal affect, normal mood Skin exam: Present: warm, dry, intact, normal color. Absent: rash Course Vital Signs 12/18/22 12/18/22 12/18/22 01:26 03:18 03:30 Temperature 98.2 F Pulse Rate 86 69 Respiratory 18 18 Rate Blood Pressure 224/71 182/68 178/68 O2 Sat by Pulse 98 98 Oximetry 12/18/22 12/18/22 12/18/22 06:00 07:15 09:51 Temperature 97.8 F 97.7 F Pulse Rate 68 65 67 Respiratory 16 16 18 Rate Blood Pressure 160/63 168/65 155/78 O2 Sat by Pulse 98 97 96 Oximetry 12/18/22 14:38 Temperature Pulse Rate 73 Respiratory 18 Rate Blood Pressure 179/73 O2 Sat by Pulse 97 Oximetry Chest Pain MDM - MDM Was pt. sent in by a medical professional or institution (, SAMANTHA, LEAD DATA ENTRY OPERATOR, urgent care, hospital, or [place] health care facility...) When possible be specific @ -No Did you speak to anyone other than the patient for history (EMS, parent, family, police, friend...)? What history was obtained from this source @ -Spoke with the patient's daughter Did you review nursing and triage notes (agree or disagree)? Why? @ -I reviewed and agree with nursing and triage notes Were old charts reviewed (outside hosp., previous admission, EMS record, old EK G, old radiological studies, urgent care reports/EKG's, [place] health care facility records)? Report findings @ -No old charts were reviewed Differential Diagnosis (chest pain, altered mental status, abdominal pain women, abdominal pain men, vaginal bleeding, weakness, fever, dyspnea, syncope, headache, dizziness, GI bleed, back pain, seizure, CVA, palpatations, mental health, musculoskeletal)? @ -Differential Chest Pain: Stable Angina, Unstable Angina, STEMI, NSTEMI Aortic Dissection, Pneumothorax, Musculoskeletal, Esophageal Spasm GERD, Cholecystitis, Pancreatitis, Zoster, this is not meant to be an all-inclusive list. EKG interpreted by me (3pts min.). @ -Yes and demonstrates sinus rhythm with PVCs rate of 89. DE interval 153. QRS 101. QTC of 411. No acute ST segment elevations or depressions X-rays interpreted by me (1pt min.). @ -Yes and demonstrates no acute intrathoracic process CT interpreted by me (1pt min.). @ -None done U/S interpreted by me (1pt. min.). @ -None done What testing was considered but not performed or refused? (CT, X-rays, U/S, labs)? Why? @ -None What meds were considered but not given or refused? Why? @ -None Did you discuss the management of the patient with other professionals (professionals i.e. , PA, LEAD DATA ENTRY OPERATOR, lab, RT, psych nurse, licensed social worker, investigation division sergeant, teacher, public affairs officer, special education case manager)? Give summary @ -Spoke with Dr. Staples who accepted admission Was smoking cessation discussed for >3mins.? @ -No Was critical care preformed (if so, how long)? @ -No Were there social determinants of health that impacted care today? How? (Homelessness, low income, unemployed, alcoholism, drug addiction, transportation, low edu. Level, literacy, decrease access to med. care, senior living, rehab)? @ -No Was there de-escalation of care discussed even if they declined (Discuss DNR or withdrawal of care, Hospice)? DNR status @ -No What co-morbidities impacted this encounter? (DM, HTN, Smoking, COPD, CAD, Cancer, CVA, ARF, Chemo, Hep., AIDS, mental health diagnosis, sleep apnea, morbid obesity)? @ -Hypertension Was patient admitted / discharged? Hospital course, mention meds given and route, prescriptions, significant lab abnormalities, going to OR and other pertinent info. @ -Upon arrival patient was placed into room 6. Thorough history and physical exam was performed. She is placed on continuous pulse ox and cardiac monitoring. 12-lead EKG was obtained. Laboratory studies were conducted. Chest x-ray was performed. Results are discussed with the patient and her daughter. Recommended admission for accelerated hypertension and chest pain. Patient was agreeable to this. Spoke with Dr. Staples who agreed to admit the patient Undiagnosed new problem with uncertain prognosis? @ -Yes Drug Therapy requiring intensive monitoring for toxicity (Heparin, Nitro, Insulin, Cardizem)? @ -No Were any procedures done? @ -No Diagnosis/symptom? @ -Acute chest pain, accelerated hypertension Acute, or Chronic, or Acute on Chronic? @ -Acute Uncomplicated (without systemic symptoms) or Complicated (systemic symptoms)? @ -Complicated Side effects of treatment? @ -No Exacerbation, Progression, or Severe Exacerbation? @ -No Poses a threat to life or bodily function? How? (Chest pain, [place], [place], pneumonia, PE, COPD, DKA, ARF, appy, cholecystitis, CVA, Diverticulitis, Homicidal, Suicidal, threat to staff... and all critical care pts) @ -No Disposition Clinical Impression: Chest pain, Accelerated hypertension Disposition: ADMITTED IP TO THIS HOSP Condition: Stable Is patient prescribed a controlled substance at d/c from ED?: No Time of Disposition: 03:30 Decision to Admit Reason: Admit from EC Decision Date: 12/18/22 Decision Time: 03:30
[2022-12-18] MEDS ORDERED: NALOXONE 0.4 MG/ML 1 ML VIAL IV PRN (03:30)
[2022-12-18] MEDS ORDERED: hydrALAZINE HCL 20 MG/ML 1 ML VIAL IVP STA (03:32)
[2022-12-18] MEDS ORDERED: ASPIRIN 81 MG PO STA (04:57)
[2022-12-18] MEDS ORDERED: MELATONIN 5 MG TABLET PO ONE (05:08)
[2022-12-18] MEDS ORDERED: cloNIDine HCL 0.1 MG TAB PO PRN (06:28)
[2022-12-18] MEDS ORDERED: DEXTROSE 50% SYRINGE 50 ML IVP PRN ×2 (06:28)
--- NOTE | 2022-12-18 06:37 | P.HPIM ---
History of Present Illness H&P Date: 12/18/22 Chief Complaint: Chest pain 77-year-old female diabetes mellitus, hypertension Patient coming in for evaluation of a sudden onset chest pain that started while resting doing nothing. she was watching TV around 11 PM as she started to go to be and lay down, she started feeling pressure retrosternally nonradiating denies any associated nausea vomiting shortness of breath palpitations or profuse sweating. She denies any fevers chills upper respiratory coughing and runny nose denies any known sick contacts. She denies any cardiac history in the past denies any cardiac workup in the past. she does report GERD and recurrent issues related to her stomach, but currently denies any stomach problems, and claims that usually feels different. she denies any exercise induced chest pain before. Patient denies any recent travel hospital stay or active diagnoses of cancer she denies any history of blood clots. She denies any trauma to the chest She reports that pain resolved on its own after about an hour however when she was checking her blood pressure she found significantly elevated she got alarmed decided to come in for evaluation Patient denies any tobacco smoking and illicit drugs or alcohol review of systems Pertinent positives as noted in HPI. All other systems were reviewed and are negative on exam Constitutional: No acute distress, conversant, pleasant Eyes: Anicteric sclerae, moist conjunctiva, Pupils equal round reactive to light ENMT: NC/AT Oropharynx clear, no erythema, or exudates Neck: Supple, no masses, or JVD No carotid bruits No thyromegaly Lungs: Clear to auscultation Clear to percussion Normal respiratory effort, no accessory muscle use Cardiovascular: Heart regular in rate and rhythm, No murmurs, gallops, or rubs No peripheral edema Abdominal: Soft Nontender, no guarding, rebound or rigidity Abdomen moving with respiration Normoactive bowel sounds No hepatomegaly, No splenomegaly No palpable mass No abdominal wall hernia noted Extremities: No digital cyanosis No clubbing Pedal pulses intact and symmetrical Radial pulses intact and symmetrical No calf tenderness Psychiatric: Alert and oriented to person, place and time Appropriate affect fair judgement Neuro Muscles Strength 5/5 in all 4 extremities Sensation to light touch grossly present throughout Cranial nerves II-XII grossly intact Lymphatics: no palpable cervical or supraclavicular lymph nodes Assessment and plan 77-year-old female with diabetes mellitus and hypertension coming in for chest pain and uncontrolled blood pressure discussed the case with the adductor accepted the admission for atypical chest pain with malignant hypertension with anticipated length of stay less than 2 midnights Malignant hypertension with chest pain Troponins negative EKG no acute ST changes Blood pressure improved with IV pushes of hydralazine when necessary Continue to trend troponins Cardiac monitoring Monitor vital signs Resume lisinopril Clonidine when necessary for systolic blood pressure more than 180 Cardiology consult Continue with aspirin and statin Checks x-ray no acute pathology EKG normal sinus rhythm with frequent PVCs Blood work overall unremarkable white count 7.5 hemoglobin 11.9 Sodium 139 potassium 5 bun 23 creatinine 0.75 Diabetes mellitus Continue with insulin sliding scale GERD PPI Full code DVT prophylaxis heparin subcu 3 times a day Past Medical History Past Medical History: Chest Pain / Angina, Diabetes Mellitus, GERD/Reflux, Hyperlipidemia, Hypertension Additional Past Medical History / Comment(s): CHRONIC UTI. Ulcers. Arthritis. Anxiety. History of Any Multi-Drug Resistant Organisms: None Reported Past Surgical History: Section, Cholecystectomy, Hernia Repair, Hysterectomy Additional Past Surgical History / Comment(s): Umbilical hernia repair. Lt catarct removed-lens implant. Laser eye sx. Rt carpal tunnel release Past Anesthesia/Blood Transfusion Reactions: No Reported Reaction Past Psychological History: Anxiety Smoking Status: Never smoker Past Alcohol Use History: None Reported Past Drug Use History: None Reported - Past Family History Father Family Medical History: Diabetes Mellitus Mother Family Medical History: No Reported History Medications and Allergies Home Medications Medication Instructions Recorded Confirmed Type Cholecalciferol [Vitamin D3 (25 5,000 unit PO WEEKLY 10/30/15 01/15/22 History Mcg = 1000 Iu)] Insulin Glargine [Lantus Vial] 58 unit SQ HS 10/30/15 01/15/22 History Insulin Regular, Human [NovoLIN R] See Protocol SQ AC-TID 10/30/15 01/15/22 History Lovastatin [Mevacor] 20 mg PO HS 10/30/15 01/15/22 History Acetaminophen Tab [Tylenol Tab] 325 - 650 mg PO BID PRN 11/05/15 01/15/22 History Omeprazole 20 mg PO DAILY 11/05/15 01/15/22 History traMADol HCL [Ultram] 50 mg PO Q4HR PRN #30 tab 11/06/15 01/15/22 Rx Ibuprofen [Motrin] 800 mg PO DIRECTED PRN 04/14/17 01/15/22 History Methenamine Hippurate [Hiprex] 1 gm PO BID 05/05/17 01/15/22 History lisinopriL [Prinivil] 20 mg PO QAM 05/05/17 01/15/22 History Oseltamivir [Tamiflu] 75 mg PO Q12HR 5 Days #10 cap 01/08/22 01/15/22 Rx Allergies Allergy/AdvReac Type Severity Reaction Status Date / Time No Known Allergies Allergy Verified 12/18/22 01:26 Physical Exam Vitals: Vital Signs Temp Pulse Resp BP Pulse Ox 12/18/22 06:00 68 16 160/63 98 12/18/22 03:30 178/68 12/18/22 03:18 69 18 182/68 98 12/18/22 01:26 98.2 F 86 18 224/71 98 Intake and Output 12/17/22 12/17/22 12/18/22 14:59 22:59 06:59 Other: Weight 99.337 kg Results CBC & Chem 7: 12/18/22 01:54 12/18/22 01:54 Labs: Abnormal Lab Results - Last 24 Hours (Table) 12/18/22 Range/Units 01:54 Chloride 108 H (98-107) mmol/L BUN 23 H (7-17) mg/dL Glucose 178 H (74-99) mg/dL
[2022-12-18 07:10] LABS: Glucose,Whole Blood 143 mg/dL (70-110)
[2022-12-18] MEDS: INSULIN ASPART (NovoLOG) 100 UNIT/ML VIAL SQ SCH ×4 (07:17→21:27)
--- NOTE | 2022-12-18 07:50 | XR ---
EXAM: XR Chest, 2 Views CLINICAL HISTORY: ITS.REASON XR Reason: Chest Pain TECHNIQUE: Frontal and lateral views of the chest. COMPARISON: No relevant prior studies available. FINDINGS: Lungs: Unremarkable. No consolidation. Pleural space: Unremarkable. No pneumothorax. Heart: Unremarkable. No cardiomegaly. Mediastinum: Unremarkable. Bones/joints: Unremarkable. IMPRESSION: Normal chest x-rays.
[2022-12-18] MEDS ORDERED: lisinopriL 20 MG TAB PO SCH ×2 (09:00→21:00)
[2022-12-18] MEDS: PANTOPRAZOLE 40 MG TABLET PO SCH (09:55)
[2022-12-18] MEDS: HEPARIN SODIUM,PORCINE 5,000 UNIT/ML 1 ML VIAL SQ SCH ×3 (09:57→20:34)
[2022-12-18] MEDS: GABAPENTIN 300 MG CAP PO SCH ×2 (11:08→20:33)
[2022-12-18] MEDS: amLODIPine 10 MG TAB PO SCH (11:08)
[2022-12-18 11:57] LABS: Glucose,Whole Blood 152 mg/dL (70-110)
[2022-12-18] MEDS: INSULIN DETEMIR (LEVEMIR) 100 UNIT/ML SYR SQ SCH (12:04)
--- NOTE | 2022-12-18 13:41 | P.CRDCN ---
History of Present Illness Consult date: 12/18/22 Consult reason: chest pain History of present illness: History of present illness: This is a 77 year old female patient of Dr. Josue seen in the office in 2019 with past medical history of hypertension, diabetes mellitus, hyperlipidemia, PACs, gastroesophageal reflux disease. We have been asked to evaluate the patient for chest pain. Patient states that she has had a high blood pressure up to 220 systolic at home and then she developed chest pain that seemed to be quite severe. She was recently taken off amlodipine due to dizziness and headache by her PCP. Initial blood pressure on presentation was 224/71. EKG Sinus rhythm with PACs. Chest x-ray: Normal CBC within normal limits. Sodium 139, potassium 5, chloride 108, BUN 23 creatinine 0.75. Troponins negative 3. Magnesium 1.8. Liver function tests are normal. ProBNP 341. Home cardiac medications: Lisinopril 10 mg daily, lovastatin 29 g at bedtime Lexiscan stress test 2018 normal and EF 65%, no evidence of ischemia. Echocardiogram 04/2018 performed in the office revealed normal LV function, mild concentric hypertrophy. Mild mitral regurgitation, mild tricuspid r egurgitation, mild pulmonary regurgitation. Review Of Systems: At the time of my evaluation: Constitutional: No fever, no chills. No weakness, fatigue or lethargy. EENT: No headache. No dizziness. Lungs: No shortness of breath, cough, no sputum production. No wheezing. Cardiovascular: No chest pain, no lower extremity edema. No palpitations. No paroxysmal nocturnal dyspnea. No orthopnea. No lightheadedness or dizziness. No syncopal episodes. Abdominal: No abdominal pain. No nausea, vomiting. Musculoskeletal: No myalgias. No muscle weakness, no frequent falls. Integumentary: No wounds. No rash. No unusual bruising. Neurologic: No aphasia. No facial droop. No change in mentation. Physical examination: Gen: This is a 77-year-old female resting on ER stretcher and appears to be in no acute distress VS: reviewed HEENT: Head is atraumatic, normocephalic. Pupils equal, round. Sclerae is anicteric. NECK: Supple. No JVD. . LUNGS: Clear to auscultation. No wheezes or rhonchi. No intercostal retractions. HEART: Regular rate and rhythm. No murmur. ABDOMEN: Soft No tenderness. EXTREMITIES: No pedal edema. No calf tenderness. NEUROLOGICAL: Patient is awake, alert and oriented x3. Assessment: Hypertension Chest pain secondary to uncontrolled hypertension Hyperlipidemia Diabetes mellitus type 2 Gastroesophageal reflux disease Plan: Resume patient's home cardiac medications with the following changes. Change lisinopril to nighttime dosing 20 mg, add amlodipine 10 mg daily Obtain A1c and lipid panel Obtain 2-D echocardiogram and Doppler study to assess cardiac structure and function Further recommendations to follow based upon clinical course Thank you kindly for this consultation. Nurse practitioner note has been reviewed, I agree with documented findings and plan of care. Patient was seen and examined. Past Medical History Past Medical History: Chest Pain / Angina, Diabetes Mellitus, GERD/Reflux, Hyperlipidemia, Hypertension Additional Past Medical History / Comment(s): CHRONIC UTI. Ulcers. Arthritis. Anxiety. History of Any Multi-Drug Resistant Organisms: None Reported Past Surgical History: Section, Cholecystectomy, Hernia Repair, Hysterectomy Additional Past Surgical History / Comment(s): Umbilical hernia repair. Lt catarct removed-lens implant. Laser eye sx. Rt carpal tunnel release Past Anesthesia/Blood Transfusion Reactions: No Reported Reaction Past Psychological History: Anxiety Smoking Status: Never smoker Past Alcohol Use History: None Reported Past Drug Use History: None Reported - Past Family History Father Family Medical History: Diabetes Mellitus Mother Family Medical History: No Reported History Medications and Allergies Home Medications Medication Instructions Recorded Confirmed Type Insulin Glargine [Lantus Vial] 58 unit SQ DAILY 10/30/15 12/18/22 History Lovastatin [Mevacor] 20 mg PO HS 10/30/15 12/18/22 History Omeprazole 20 mg PO DAILY 11/05/15 12/18/22 History Methenamine Hippurate [Hiprex] 1 gm PO BID 05/05/17 12/18/22 History Cholecalciferol [Vitamin D3 (25 25 mcg PO DAILY 12/18/22 12/18/22 History Mcg = 1000 Iu)] Ergocalciferol [Vitamin D2 (1250 1,250 mcg PO Q7D 12/18/22 12/18/22 History Mcg = 63328 Iu)] Gabapentin [Neurontin] 300 mg PO BID 12/18/22 12/18/22 History allopurinoL 200 mg PO HS 12/18/22 12/18/22 History lisinopriL [Zestril] 10 mg PO DAILY 12/18/22 12/18/22 History Allergies Allergy/AdvReac Type Severity Reaction Status Date / Time No Known Allergies Allergy Verified 12/18/22 07:18 Physical Exam Vitals: Vital Signs Temp Pulse Resp BP Pulse Ox 12/18/22 09:51 97.7 F 67 18 155/78 96 12/18/22 07:15 97.8 F 65 16 168/65 97 12/18/22 06:00 68 16 160/63 98 12/18/22 03:30 178/68 12/18/22 03:18 69 18 182/68 98 12/18/22 01:26 98.2 F 86 18 224/71 98 Intake and Output 12/17/22 12/18/22 12/18/22 22:59 06:59 14:59 Other: Weight 99.337 kg Results 12/18/22 01:54 12/18/22 01:54 Cardiac Enzymes 12/18/22 12/18/22 12/18/22 Range/Units 01:54 01:54 07:26 AST 29 (14-36) U/L Troponin I 0.013 0.026 (0.000-0.034) ng/mL 12/18/22 Range/Units 11:17 AST (14-36) U/L Troponin I 0.014 (0.000-0.034) ng/mL Coagulation 12/18/22 Range/Units 01:54 PT 10.7 (10.0-12.5) sec APTT 23.7 (22.0-30.0) sec CBC 12/18/22 Range/Units 01:54 WBC 7.5 (3.8-10.6) k/uL RBC 4.01 (3.80-5.40) m/uL Hgb 11.9 (11.4-16.0) gm/dL Hct 36.6 (34.0-46.0) % Plt Count 223 (150-450) k/uL Comprehensive Metabolic Panel 12/18/22 Range/Units 01:54 Sodium 139 (137-145) mmol/L Potassium 5.0 (3.5-5.1) mmol/L Chloride 108 H (98-107) mmol/L Carbon Dioxide 22 (22-30) mmol/L BUN 23 H (7-17) mg/dL Creatinine 0.75 (0.52-1.04) mg/dL Glucose 178 H (74-99) mg/dL Calcium 9.9 (8.4-10.2) mg/dL AST 29 (14-36) U/L ALT 25 (4-34) U/L Alkaline Phosphatase 76 (38-126) U/L Total Protein 7.3 (6.3-8.2) g/dL Albumin 4.1 (3.5-5.0) g/dL Current Medications Generic Name Dose Route Start Last Admin Trade Name Freq PRN Reason Stop Dose Admin Allopurinol 200 mg 12/18/22 21:00 Allopurinol 100 Mg Tab PO HS CHRISTINA Amlodipine Besylate 10 mg 12/18/22 09:00 12/18/22 11:08 Amlodipine 10 Mg Tab PO 10 mg DAILY CHRISTINA Administration Atorvastatin Calcium 20 mg 12/18/22 21:00 Atorvastatin 20 Mg Tab PO HS CHRISTINA Dextrose/Water 25 ml 12/18/22 06:28 Dextrose 50% Syringe 50 Ml IVP PER PROTOCOL PRN Hypoglycemia Protocol Dextrose/Water 50 ml 12/18/22 06:28 Dextrose 50% Syringe 50 Ml IVP PER PROTOCOL PRN Hypoglycemia Protocol Gabapentin 300 mg 12/18/22 10:00 12/18/22 11:08 Gabapentin 300 Mg Cap PO 300 mg BID CHRISTINA Administration Heparin Sodium (Porcine) 5,000 unit 12/18/22 08:00 12/18/22 09:57 Heparin Sodium,Porcine 5,000 Unit/Ml 1 Ml Vial SQ 5,000 unit Q8HR [facility] Administration Insulin Aspart 0 unit 12/18/22 07:30 12/18/22 12:03 Insulin Aspart (Novolog) 100 Unit/Ml Vial SQ Not Given ACHS [facility] Protocol Insulin Detemir 58 unit 12/18/22 10:30 12/18/22 12:04 Insulin Detemir (Levemir) 100 Unit/Ml Syr SQ 58 unit DAILY@0700 [facility] Administration Lisinopril 20 mg 12/18/22 21:00 Lisinopril 20 Mg Tab PO HS CHRISTINA Naloxone HCl 0.2 mg 12/18/22 03:30 Naloxone 0.4 Mg/Ml 1 Ml Vial IV Q2M PRN Opioid Reversal Pantoprazole Sodium 40 mg 12/18/22 07:30 12/18/22 09:55 Pantoprazole 40 Mg Tablet PO 40 mg [id number] [facility] Administration Intake and Output 12/17/22 12/18/22 12/18/22 22:59 06:59 14:59 Other: Weight 99.337 kg 12/18/22 01:54 12/18/22 01:54
--- NOTE | 2022-12-18 16:28 | P.PN ---
Subjective Progress Note Date: 12/18/22 Hospital course: Patient is a very pleasant 77-year-old female with a past medical history of hypertension, hyperlipidemia, and insulin-dependent diabetes mellitus. She presented to the emergency department with the chief complaint of sudden onset chest pain. Patient reported this chest pain presented at rest while she was sitting down watching TV. She described pain as a pressure to midsternal chest and denied having any radiation of this pain or associated symptoms including dizziness, lightheadedness, diaphoresis, palpitations, shortness of breath, nausea, or vomiting. She underwent full evaluation in the emergency department. Labs completed and reviewed. CBC and coagulation profile were unremarkable. BMP revealed hyperchloremia with chloride of 108 and prerenal azotemia with BUN of 23. Liver profile was unremarkable. Magnesium normal findings at 1.8. Initial troponin 0.013 with proBNP of 341. Repeat troponin 0.026. EKG completed showing normal sinus rhythm with frequent PVCs in quadrigeminy pattern upon personal review and interpretation. Chest x-ray reviewed, lungs appear clear radiology report stating negative for acute cardiopulmonary process. Seymour cordero was admitted under our services with consultation to cardiology. Physical exam: Vital signs reviewed and stable. General: Nontoxic, no distress and appears stated age. Derm: Skin warm and dry, normal coloration for ethnicity. Head: Atraumatic, normocephalic and symmetric. Eyes: EOMs intact, no lid lag, and anicteric sclera Mouth: no lip lesions, mucus membranes moist Cardiovascular: regular rate and rhythm with normal S1S2, no murmur, positive posterior tibial pulses bilaterally, and cap refill < 2 seconds. Lungs: Respirations even, regular, and unlabored on room air. Lungs CTA bilaterally, no rhonchi, no rales, no wheezing, and no accessory muscle usage. Abdominal: soft, nontender to palpation, no guarding, no appreciable organomegaly Ext: ROM intact. No gross muscle atrophy, no edema, no contractures Neuro: Speech clear, face symmetrical and CN II-XII grossly intact with no noted focal neuro deficits Psych: Alert and oriented to person, place, time, and situation. Appropriate and pleasant affect. Assessment and Plan of Care: Chest pain, rule out acute coronary event Hypertension Hyperlipidemia -Cardiology consulted, reviewed documentation in chart and appreciate further recommendations -Telemetry monitoring -Troponins were trended resulting in 0.013, 0.026, and 0.014 -Cardiac diet, -Continue daily medication regimen with aspirin 81 mg daily, atorvastatin 20 mg nightly, lisinopril 20 mg nightly, and cardiology started patient on amlodipine 10 mg daily for persistent hypertension with morning blood pressure 168/65. -EchocardiogramTo be completed Insulin dependent diabetes mellitus -Continue Levemir [address] patient on glycemic protocol with NovoLog sliding scale. CODE STATUS: Full code DVT prophylaxis: Heparin Discussed with: Patient and RN Anticipated discharge date: 24-[address]: Home Patient was seen independently by Nurse Pracitioner. This document was prepared using [employer] dictation software. Please allow for errors in hose handler, while rare they do occur. I reviewed the documentation as provided by the BHANU above, who is the original author of this note. I agree with the documented assessment and plan, with the following changes: none Objective - Vital Signs Vital signs: Vital Signs Temp 97.8 F 12/18/22 07:15 Pulse 65 12/18/22 07:15 Resp 16 12/18/22 07:15 BP 168/65 12/18/22 07:15 Pulse Ox 97 12/18/22 07:15 FiO2 Intake & Output 12/17/22 12/18/22 12/18/22 18:59 06:59 18:59 Weight 99.337 kg - Labs CBC & Chem 7: 12/18/22 01:54 12/18/22 01:54 Labs: Abnormal Lab Results - Last 24 Hours (Table) 12/18/22 12/18/22 Range/Units 01:54 07:08 Chloride 108 H (98-107) mmol/L BUN 23 H (7-17) mg/dL Glucose 178 H (74-99) mg/dL POC Glucose (mg/dL) 143 H (70-110) mg/dL
[2022-12-18 17:34] LABS: Glucose,Whole Blood 232 mg/dL (70-110)
--- NOTE | 2022-12-18 18:00 | CA ---
Transthoracic Echo Report Name: Alley Benson Age: 77 Gender: F : 1945 Exam Date: 12/18/2022 11:39 Exam Location: [facility] Ht (in): 64 Wt (lb): 219 Ordering Physician: Danish Duron Attending/Referring Phys: Child Support Agent John Angel Procedure CPT: Indications: Evaluate structure and function of heart Cardiac Hx: Technical Quality: Fair Contrast 1: Total Dose (mL): Contrast 2: Total Dose (mL): MEASUREMENTS (Male / Female) Normal Values 2D ECHO LV Diastolic Diameter PLAX 4.8 cm 4.2 - 5.9 / 3.9 - 5.3 cm LV Systolic Diameter PLAX 3.4 cm IVS Diastolic Thickness 1.0 cm 0.6 - 1.0 / 0.6 - 0.9 cm LVPW Diastolic Thickness 1.2 cm 0.6 - 1.0 / 0.6 - 0.9 cm LV Relative Wall Thickness 0.5 RV Internal Dim ED PLAX 3.0 cm LVOT Diameter 2.0 cm Aortic Root Diameter 2.7 cm LA Systolic Diameter LX 2.9 cm 3.0 - 4.0 / 2.7 - 3.8 cm LV Diastolic Volume MOD BP 46.8 cm??? 67 - 155 / 56 - 104 cm??? LV Systolic Volume MOD BP 18.0 cm??? 22 - 58 / 19 - 49 cm??? LV Ejection Fraction MOD BP 61.5 % >= 55 % LV Cardiac Index MOD BP 997.0 cm???/min???m??? LV Diastolic Volume MOD 4C 56.1 cm??? LV Systolic Volume MOD 4C 26.3 cm??? LV Ejection Fraction MOD 4C 53.1 % LV Cardiac Index MOD 4C 1032.7 cm???/min???m??? LV Diastolic Length 4C 6.6 cm LV Systolic Length 4C 5.8 cm LV Diastolic Volume MOD 2C 38.5 cm??? LV Systolic Volume MOD 2C 12.3 cm??? LV Ejection Fraction MOD 2C 68.1 % LV Cardiac Index MOD 2C 908.1 cm???/min???m??? LV Diastolic Length 2C 6.5 cm LV Systolic Length 2C 5.9 cm LA Volume 63.3 cm??? 18 - 58 / 22 - 52 cm??? LA Volume Index 29.2 cm???/m??? 16 - 28 cm???/m??? Ascending Aorta Diameter 2.6 cm DOPPLER AV Peak Velocity 144.8 cm/s AV Peak Gradient 8.4 mmHg LVOT Peak Velocity 93.7 cm/s LVOT Peak Gradient 3.5 mmHg LVOT Velocity Time Integral 22.9 cm LVOT Stroke Volume 74.9 cm??? LVOT Stroke Volume Index 36.8 ml/m??? LVOT Cardiac Index 2594.5 cm???/min???m??? AV Area Cont Eq pk 2.1 cm??? MV Peak Velocity 159.1 cm/s MV Peak Gradient 10.1 mmHg MV Mean Velocity 79.6 cm/s MV Mean Gradient 3.3 mmHg MV Velocity Time Integral 54.3 cm MR Peak Velocity 266.4 cm/s MR Peak Gradient 28.4 mmHg Mitral E Point Velocity 113.7 cm/s Mitral A Point Velocity 114.7 cm/s Mitral E to A Ratio 1.0 MV Deceleration Time 264.7 ms MV E' Velocity 6.2 cm/s Mitral E to MV E' Ratio 18.5 TR Peak Velocity 267.9 cm/s TR Peak Gradient 28.7 mmHg Right Ventricular Systolic Press 33.7 mmHg PV Peak Velocity 90.4 cm/s PV Peak Gradient 3.3 mmHg FINDINGS Left Ventricle Normal LV size and wall thickness. Left ventricular ejection fraction is estimated at 50-55 %. Right Ventricle Normal right ventricular size. RVSP= 34mmHg. Right Atrium Normal right atrial size. Left Atrium Normal left atrial size. Mitral Valve Moderate to severe Mitral annulus calcification. No mitral stenosis. Aortic Valve Trileaflet aortic valve. Tricuspid Valve Tricuspid valve not well visualized. Mild Tr. Pulmonic Valve Pulmonic valve not well visualized. Trace PI. Pericardium Normal pericardium. Aorta Normal size aortic root. CONCLUSIONS Normal LV systolic function Significant mitral calcification Previewed by: Dr. Hollis Josue MD (Electronically Signed) Final Date: 18 December 2022 17:59
[2022-12-18] MEDS ORDERED: allopurinoL 100 MG TAB PO SCH (21:00)
[2022-12-18] MEDS ORDERED: ATORVASTATIN 20 MG TAB PO SCH (21:00)
[2022-12-18] MEDS ORDERED: ATORVASTATIN 10 MG TAB PO SCH (21:00)
[2022-12-18 21:08] LABS: Glucose,Whole Blood 195 mg/dL (70-110)
[2022-12-19 06:20] LABS: Glucose,Whole Blood 92 mg/dL (70-110)
[2022-12-19] MEDS: INSULIN ASPART (NovoLOG) 100 UNIT/ML VIAL SQ SCH ×2 (06:23→13:07)
[2022-12-19] MEDS: INSULIN DETEMIR (LEVEMIR) 100 UNIT/ML SYR SQ SCH (06:23)
[2022-12-19] MEDS: PANTOPRAZOLE 40 MG TABLET PO SCH (06:24)
[2022-12-19] MEDS: amLODIPine 10 MG TAB PO SCH (08:26)
[2022-12-19] MEDS: GABAPENTIN 300 MG CAP PO SCH (08:26)
[2022-12-19] MEDS: HEPARIN SODIUM,PORCINE 5,000 UNIT/ML 1 ML VIAL SQ SCH (08:26)
[2022-12-19] MEDS ORDERED: ASPIRIN 81 MG PO SCH (09:00)
[2022-12-19 09:46] LABS: Basophils # (A) 0.04 X 10*3/uL (0.00-0.10); Basophils % (A) 0.6 %; Eosinophils # (A) 0.16 X 10*3/uL (0.04-0.35); Eosinophils % (A) 2.4 %; HCT 37.7 % (37.2-46.3); HGB 11.9 d/dL (12.0-15.0); Lymphocytes # (A) 2.72 X 10*3/uL (0.90-5.00); Lymphocytes % (A) 40.6 %; MCH 28.6 pg (27.0-32.0); MCHC 31.6 d/dL (32.0-37.0); MCV 90.6 FL (80.0-97.0); Mean Platelet Volume 10.9 FL (9.5-12.2); Monocytes # (A) 0.65 X 10*3/uL (0.20-1.00); Monocytes % (A) 9.7 %; NRBC Per 100 WBC 0 X 10*3/uL (0.00-0.01); Neutrophils # (A) 3.11 X 10*3/uL (1.80-7.70); Neutrophils % (A) 46.4 %; Platelet Count 261 X 10*3/uL (140-440); RBC 4.16 X 10*6/uL (4.10-5.20); RDW 13.2 % (11.5-14.5)
[2022-12-19 09:48] LABS: Blood Urea Nitrogen 18.7 mg/dL (9.0-27.0); Calcium 9.9 mg/dL (8.7-10.3); Carbon Dioxide 23.8 mmol/L (21.6-31.8); Chloride 103 mmol/L (96-109); Glucose 94 mg/dL (70-110); Potassium 4.8 mmol/L (3.5-5.5); Sodium 139 mmol/L (135-145)
[2022-12-19 12:10] LABS: Glucose,Whole Blood 339 mg/dL (70-110)
--- NOTE | 2022-12-19 12:24 | P.PN ---
Subjective Progress Note Date: 12/19/22 Progress note: Patient is doing well from cardiac vessel standpoint. She denies any symptoms of chest pain chest pressure or shortness of breath. She denies any lightheadedness or dizziness. No swelling in the next if she is able to stand up and go to the bathroom and walk in the rodriguez without any limitations. Her blood pressure is better controlled today there are some fluctuating readings but she has a tendency of going low. History of present illness: This is a 77 year old female patient of Dr. Josue seen in the office in 2019 with past medical history of hypertension, diabetes mellitus, hyperlipidemia, PACs, gastroesophageal reflux disease. We have been asked to evaluate the patient for chest pain. Patient states that she has had a high blood pressure up to 220 systolic at home and then she developed chest pain that seemed to be quite severe. She was recently taken off amlodipine due to dizziness and headache by her PCP. Initial blood pressure on presentation was 224/71. EKG Sinus rhythm with PACs. Chest x-ray: Normal CBC within normal limits. Sodium 139, potassium 5, chloride 108, BUN 23 creatinine 0.75. Troponins negative 3. Magnesium 1.8. Liver function tests a re normal. ProBNP 341. Home cardiac medications: Lisinopril 10 mg daily, lovastatin 29 g at bedtime Lexiscan stress test 2018 normal and EF 65%, no evidence of ischemia. Echocardiogram 04/2018 performed in the office revealed normal LV function, mild concentric hypertrophy. Mild mitral regurgitation, mild tricuspid regurgitation, mild pulmonary regurgitation. Review Of Systems: At the time of my evaluation: Constitutional: No fever, no chills. No weakness, fatigue or lethargy. EENT: No headache. No dizziness. Lungs: No shortness of breath, cough, no sputum production. No wheezing. Cardiovascular: No chest pain, no lower extremity edema. No palpitations. No paroxysmal nocturnal dyspnea. No orthopnea. No lightheadedness or dizziness. No syncopal episodes. Abdominal: No abdominal pain. No nausea, vomiting. Musculoskeletal: No myalgias. No muscle weakness, no frequent falls. Integumentary: No wounds. No rash. No unusual bruising. Neurologic: No aphasia. No facial droop. No change in mentation. Physical examination: Gen: This is a 77-year-old female resting on ER stretcher and appears to be in no acute distress VS: reviewed HEENT: Head is atraumatic, normocephalic. Pupils equal, round. Sclerae is anicteric. NECK: Supple. No JVD. . LUNGS: Clear to auscultation. No wheezes or rhonchi. No intercostal retractions. HEART: Regular rate and rhythm. No murmur. ABDOMEN: Soft No tenderness. EXTREMITIES: No pedal edema. No calf tenderness. NEUROLOGICAL: Patient is awake, alert and oriented x3. Assessment: Hypertension Chest pain secondary to uncontrolled hypertension Hyperlipidemia Diabetes mellitus type 2 Gastroesophageal reflux disease Plan: Continue lisinopril 20 mg amlodipine 10 mg daily Echo cardiac exam shows normal LV size and systolic function with no major valvular abnormalities. Continue statin and aspirin She needs better diabetes control Follow-up outpatient with cardiology She is cleared to be discharged from cardiac vessel standpoint Objective - Vital Signs Vital signs: Vital Signs Temp 98.0 F 12/19/22 07:00 Pulse 64 12/19/22 08:00 Resp 16 12/19/22 08:00 BP 175/62 12/19/22 07:00 Pulse Ox 99 12/19/22 07:00 FiO2 Intake & Output 12/18/22 12/19/22 12/19/22 18:59 06:59 18:59 Weight 99.337 kg Other: # Voids 2 - Labs CBC & Chem 7: 12/19/22 03:58 12/19/22 03:58 Labs: Abnormal Lab Results - Last 24 Hours (Table) 12/18/22 12/18/22 12/19/22 Range/Units 17:28 21:05 03:58 Hgb (12.0-15.0) d/dL MCHC (32.0-37.0) d/dL Anion Gap (4.00-12.00) mmol/L Est GFR (CKD-EPI) (>=60) POC Glucose (mg/dL) 232 H 195 H (70-110) mg/dL Hemoglobin A1c 7.7 H (<=6.0) % 12/19/22 12/19/22 12/19/22 Range/Units 03:58 03:58 12:09 Hgb 11.9 L (12.0-15.0) d/dL MCHC 31.6 L (32.0-37.0) d/dL Anion Gap 12.20 H (4.00-12.00) mmol/L Est GFR (CKD-EPI) 58 L (>=60) POC Glucose (mg/dL) 339 H (70-110) mg/dL Hemoglobin A1c (<=6.0) %
--- NOTE | 2022-12-19 12:42 | P.DS ---
Providers Date of admission: 12/18/22 03:30 Expected date of discharge: 12/19/22 Attending physician: Edwin Staples MD Consults: 12/18/22 03:30 Consult Physician Urgent Consulting Provider: [facility] Consult Reason/Comments: acute chest pain, acc htn Do you want consulting provider notified?: Yes [facility] Hospital Course: Discharge Diagnosis: Chest pain, acute coronary event ruled out. Hypertension, poorly controlled/ Hyperlipidemia Insulin dependent diabetes mellitus with a hemoglobin A1c of 7.7%. Hospital Course: Patient is a very pleasant 77-year-old female with a past medical history of hypertension, hyperlipidemia, and insulin-dependent diabetes mellitus. She presented to the emergency department with the chief complaint of sudden onset chest pain. Patient reported this chest pain presented at rest while she was sitting down watching TV. She described pain as a pressure to midsternal chest and denied having any radiation of this pain or associated symptoms including dizziness, lightheadedness, diaphoresis, palpitations, shortness of breath, nausea, or vomiting. She underwent full evaluation in the emergency department. Labs completed and reviewed. CBC and coagulation profile were unremarkable. BMP revealed hyperchloremia with chloride of 108 and prerenal azotemia with BUN of 23. Liver profile was unremarkable. Magnesium normal findings at 1.8. Initial troponin 0.013 with proBNP of 341. Repeat troponin 0.026. EKG completed showing normal sinus rhythm with frequent PVCs in quadrigeminy pattern upon personal review and interpretation. Chest x-ray reviewed, lungs appear clear radiology report stating negative for acute cardiopulmonary process. Patient was admitted under our services with consultation to cardiology. Troponins were trended resulting in 0.013, 0.026, and 0.014. Echocardiogram was completed showing a preserved EF of 50-55% with no significant valvular structural abnormalities reported. Patient reported full resolution of previous reported chest pain/discomfort but continued to have noted uncontrolled hypertension. Lisinopril was increased to 20 mg daily and patient was started on amlodipine 10 mg daily. Hemoglobin A1c resulting in 7.7%. Patient encouraged to work towards achieving tighter control of blood glucose levels for a goal A1c of less than 6%. Patient also instructed she will need to monitor her blood pressure twice daily at home and document these findings and a daily log to bring with her to her next doctor's appointments. Patient medically stable for discharge and to follow-up with PCP in 1-2 days and cardiology in 1 week. Physical exam: Vital signs reviewed and stable. General: Nontoxic, no distress and appears stated age. Derm: Skin warm and dry, normal coloration for ethnicity. Head: Atraumatic, normocephalic and symmetric. Eyes: EOMs intact, no lid lag, and anicteric sclera Mouth: no lip lesions, mucus membranes moist Cardiovascular: regular rate and rhythm with normal S1S2, no murmur, positive posterior tibial pulses bilaterally, and cap refill < 2 seconds. Lungs: Respirations even, regular, and unlabored on room air. Lungs CTA bilaterally, no rhonchi, no rales, no wheezing, and no accessory muscle usage. Abdominal: soft, nontender to palpation, no guarding, no appreciable organomegaly Ext: ROM intact. No gross muscle atrophy, no edema, no contractures Neuro: Speech clear, face symmetrical and CN II-XII grossly intact with no noted focal neuro deficits Psych: Alert and oriented to person, place, time, and situation. Appropriate and pleasant affect. A total of 33 minutes of time were spent preparing this complex discharge summary. Pt was discharged on 12/19/22 at 12:34 PM. Patient was seen independently by Nurse Practitioner. This document was prepared using [employer] dictation software. Please allow for errors in engine designer while rare they do occur. Danish Duron NP rendered care for this patient independently, reviewed the findings and plan as documented in the note above. I did not physically speak with or examine the patient on this date. Patient Condition at Discharge: Stable Plan - Discharge Summary New Discharge Prescriptions: New lisinopriL [Zestril] 20 mg PO HS 30 Days #30 tab amLODIPine [Norvasc] 10 mg PO DAILY 30 Days #30 tab Continue Lovastatin [Mevacor] 20 mg PO HS Insulin Glargine [Lantus Vial] 58 unit SQ DAILY Omeprazole 20 mg PO DAILY Methenamine Hippurate [Hiprex] 1 gm PO BID Gabapentin [Neurontin] 300 mg PO BID Cholecalciferol [Vitamin D3 (25 Mcg = 1000 Iu)] 25 mcg PO DAILY allopurinoL 200 mg PO HS Ergocalciferol [Vitamin D2 (1250 Mcg = 41291 Iu)] 1,250 mcg PO Q7D Discontinued lisinopriL [Zestril] 10 mg PO DAILY Discharge Medication List Insulin Glargine [Lantus Vial] 58 unit SQ DAILY 10/30/15 [History] Lovastatin [Mevacor] 20 mg PO HS 10/30/15 [History] Omeprazole 20 mg PO DAILY 11/05/15 [History] Methenamine Hippurate [Hiprex] 1 gm PO BID 05/05/17 [History] Cholecalciferol [Vitamin D3 (25 Mcg = 1000 Iu)] 25 mcg PO DAILY 12/18/22 [History] Ergocalciferol [Vitamin D2 (1250 Mcg = 78834 Iu)] 1,250 mcg PO Q7D 12/18/22 [History] Gabapentin [Neurontin] 300 mg PO BID 12/18/22 [History] allopurinoL 200 mg PO HS 12/18/22 [History] amLODIPine [Norvasc] 10 mg PO DAILY 30 Days #30 tab 12/19/22 [Rx] lisinopriL [Zestril] 20 mg PO HS 30 Days #30 tab 12/19/22 [Rx] Follow up Appointment(s)/Referral(s): Gee Rodriguez MD [Medical Doctor] - 1 Week Ryan Escalona DO [Primary Care Provider] - 1-2 days Patient Instructions/Handouts: Chest Pain (GEN), Hypertension (DC) Activity/Diet/Wound Care/Special Instructions: Activity: As tolerated. Take breaks as needed. Since you are being started on new blood pressure medications and lisinopril dose was increased, it is recommended that you change positions slowly to allow your body to adjust to these changes in your pressure. Move slowly from lying to sitting and sitting before standing. Diet: Heart healthy and carb consistent diet. Avoid salts, or foods with hidden salts such as canned or boxed foods and frozen dinners. Extra salt makes your heart work harder and traps the fluid in your body for longer. Special Instructions: Take all of your medications as directed and remember to keep all of your doctor's appointments and follow-up as needed. You will need to monitor your blood pressure twice daily at home and document these findings in a daily log to bring with you to your next doctor appointment so additional changes to medication regimen or dosage may be done if indicated based on these results.. Thank you for allowing us to participate in your care, it was truly a pleasure having you for our patient!!! Discharge Disposition: HOME SELF-CARE
[2022-12-19 21:40] VITALS: BP 175/62; PULSE 64; RESP 16; TEMP 98
== END 2022-12-19 13:40 | disposition home or self-care (01) ==
LOC: EC 01:22 → 6NMEDSUR 03:30
PROVIDERS: ADMIT Internal Medicine; ATTEND Internal Medicine
DX: R07.89 Other chest pain (principal); I10 Essential (primary) hypertension; E11.9 Type 2 diabetes mellitus without complications; I49.3 Ventricular premature depolarization; E78.5 Hyperlipidemia, unspecified; E87.8 Other disorders of electrolyte and fluid balance, not elsewhere classified; K21.9 Gastro-esophageal reflux disease without esophagitis; M19.90 Unspecified osteoarthritis, unspecified site; F41.9 Anxiety disorder, unspecified; Z79.4 Long term (current) use of insulin; Z79.899 Other long term (current) drug therapy; Z90.49 Acquired absence of other specified parts of digestive tract; Z87.440 Personal history of urinary (tract) infections; Z90.710 Acquired absence of both cervix and uterus; Z98.891 History of uterine scar from previous surgery; Z98.42 Cataract extraction status, left eye; Z96.1 Presence of intraocular lens; Z98.890 Other specified postprocedural states; Z83.3 Family history of diabetes mellitus
CPT/HCPCS: 96372 ×2; 96374; 99285; 36415; 93005; 93306; 83880; 80053; 80048; 83735; 84484; 85025 ×2; 85610; 85730; 83036; 71046; G0378 ×2; J0360; J1644 ×2

== ENCOUNTER 2023-01-07 17:13 | Inpatient (IN) | payer MEDICARE, OTHER ==
[2023-01-07] MEDS ORDERED: SODIUM CHLORIDE 0.9% 1,000 ML IV STA (17:54)
--- NOTE | 2023-01-07 18:27 | ED ---
General Adult HPI - General Chief complaint: Dizziness Stated complaint: dizziness Time Seen by Provider: 01/07/23 17:49 Source: patient, RN notes reviewed, old records reviewed Mode of arrival: wheelchair Limitations: no limitations - History of Present Illness Initial comments: 77-year-old female with lightheadedness and dizziness. Patient had been taken off of her antihypertensive medications several weeks ago and this was reinitiated. Patient denies chest pain or abdominal pain. She states she had pain in her neck which is minimal at this time. Patient denies fever. She denies significant vomiting or diarrhea. - Related Data Home Medications Medication Instructions Recorded Confirmed Insulin Glargine [Lantus Vial] 58 unit SQ DAILY 10/30/15 01/07/23 Lovastatin [Mevacor] 20 mg PO HS 10/30/15 01/07/23 Omeprazole 20 mg PO DAILY 11/05/15 01/07/23 Methenamine Hippurate [Hiprex] 1 gm PO BID 05/05/17 01/07/23 Cholecalciferol [Vitamin D3 (25 25 mcg PO DAILY 12/18/22 01/07/23 Mcg = 1000 Iu)] Ergocalciferol [Vitamin D2 (1250 1,250 mcg PO WE 12/18/22 01/07/23 Mcg = 58209 Iu)] Gabapentin [Neurontin] 300 mg PO BID 12/18/22 01/07/23 allopurinoL 200 mg PO HS 12/18/22 01/07/23 Citalopram Hydrobromide [CeleXA] 20 mg PO DAILY 01/07/23 01/07/23 Previous Rx's Medication Instructions Recorded amLODIPine [Norvasc] 10 mg PO DAILY 30 Days #30 tab 12/19/22 lisinopriL [Zestril] 20 mg PO HS 30 Days #30 tab 12/19/22 Allergies Allergy/AdvReac Type Severity Reaction Status Date / Time No Known Allergies Allergy Verified 01/07/23 20:06 Review of Systems ROS Statement: Those systems with pertinent positive or pertinent negative responses have been documented in the HPI. ROS Other: All systems not noted in ROS Statement are negative. Past Medical History Past Medical History: Chest Pain / Angina, Diabetes Mellitus, GERD/Reflux, Hyperlipidemia, Hypertension Additional Past Medical History / Comment(s): CHRONIC UTI. Ulcers. Arthritis. Anxiety. History of Any Multi-Drug Resistant Organisms: None Reported Past Surgical History: Section, Cholecystectomy, Hernia Repair, Hysterectomy Additional Past Surgical History / Comment(s): Umbilical hernia repair. Lt catarct removed-lens implant. Laser eye sx. Rt carpal tunnel release Past Anesthesia/Blood Transfusion Reactions: No Reported Reaction Past Psychological History: Anxiety Smoking Status: Never smoker Past Alcohol Use History: None Reported Past Drug Use History: None Reported - Past Family History Father Family Medical History: Diabetes Mellitus Mother Family Medical History: No Reported History General Exam Limitations: no limitations General appearance: alert, in no apparent distress Head exam: Present: atraumatic, normocephalic Eye exam: Present: normal appearance, PERRL ENT exam: Present: normal exam Neck exam: Present: normal inspection. Absent: tenderness, meningismus Respiratory exam: Present: normal lung sounds bilaterally. Absent: respiratory distress, wheezes Cardiovascular Exam: Present: normal rhythm, bradycardia GI/Abdominal exam: Present: soft. Absent: distended, tenderness, guarding Extremities exam: Present: normal inspection, normal capillary refill Neurological exam: Present: alert, oriented X3, CN II-XII intact. Absent: motor sensory deficit Skin exam: Present: warm, dry, intact. Absent: cyanosis, diaphoretic Course Vital Signs 01/07/23 01/07/23 01/07/23 17:16 18:48 19:28 Temperature 97.4 F L Pulse Rate 48 L 40 L 43 L Respiratory 18 18 16 Rate Blood Pressure 94/44 100/43 111/90 O2 Sat by Pulse 96 96 99 Oximetry Medical Decision Making - Medical Decision Making Was pt. sent in by a medical professional or institution (Dr. PA, HVAC REFRIGERATION TECHNICIAN, urgent care, hospital, or care home...) When possible be specific @ -No Did you speak to anyone other than the patient for history (EMS, parent, family, police, friend...)? What history was obtained from this source @ Patient's daughter who is at bedside Did you review nursing and triage notes (agree or disagree)? Why? @ -I reviewed and agree with nursing and triage notes Were old charts reviewed (outside hosp., previous admission, EMS record, old EKG, old radiological studies, urgent care reports/EKG's, care home records)? Report findings @ -No old charts were reviewed Differential Diagnosis (chest pain, altered mental status, abdominal pain women, abdominal pain men, vaginal bleeding, weakness, fever, dyspnea, syncope, headache, dizziness, GI bleed, back pain, seizure, CVA, palpatations, mental health, musculoskeletal)? @ -Differential Weakness: Hypoglycemia, shock, sepsis, hyponatremia, anemia, infection, MS, ETOH, adverse medicine reaction, overdose, stroke, this is not meant to be an all-inclusive list. EKG interpreted by me (3pts min.). @ Sinus bradycardia rate of 43 GA interval 154, QRS duration 114, QTC [address] segment elevation. X-rays interpreted by me (1pt min.). @ -None done CT interpreted by me (1pt min.). @ -None done U/S interpreted by me (1pt. min.). @ -None done What testing was considered but not performed or refused? (CT, X-rays, U/S, labs)? Why? @ -None What meds were considered but not given or refused? Why? @ -None Did you discuss the management of the patient with other professionals (professionals i.e. , PA, HVAC REFRIGERATION TECHNICIAN, lab, RT, psych nurse, director of social services, rn progressive care, teacher, special skills officer, nurse case management)? Give summary @ -Dr. Ca Was smoking cessation discussed for >3mins.? @ -No Was critical care preformed (if so, how long)? @ -Yes, 35 minutes Were there social determinants of health that impacted care today? How? (Homelessness, low income, unemployed, alcoholism, drug addiction, transportat ion, low edu. Level, literacy, decrease access to med. care, senior care, rehab)? @ -No Was there de-escalation of care discussed even if they declined (Discuss DNR or withdrawal of care, Hospice)? DNR status @ -No What co-morbidities impacted this encounter? (DM, HTN, Smoking, COPD, CAD, Cancer, CVA, ARF, Chemo, Hep., AIDS, mental health diagnosis, sleep apnea, morbid obesity)? @ -[Hypertension Was patient admitted / discharged? Hospital course, mention meds given and route, prescriptions, significant lab abnormalities, going to OR and other pertinent info. @ 77-year-old female presenting with lightheadedness, near-syncope. Patient is bradycardic in the 40s which is sinus bradycardia. Initial blood pressure is low. Laboratory testing reveals a prescription potassium of 7 which is slightly hemolyzed. This is repeated and is 6.1 after 1 L of IV fluid. This is likely the cause of her bradycardia. She does have an acute kidney injury with an elevated creatinine. She will be admitted for treatment of hyperkalemia, telemetry, and hydration. Case discussed with sound physician group who will admit. Undiagnosed new problem with uncertain prognosis? @ -No Drug Therapy requiring intensive monitoring for toxicity (Heparin, Nitro, Insulin, Cardizem)? @ -No Were any procedures done? @ -No Diagnosis/symptom? @ -Hyperkalemia, bradycardia, a cat Acute, or Chronic, or Acute on Chronic? @ -Acute Uncomplicated (without systemic symptoms) or Complicated (systemic symptoms)? @ -Complicated Side effects of treatment? @ -No Exacerbation, Progression, or Severe Exacerbation? @ -No Poses a threat to life or bodily function? How? (Chest pain, USA, MS, pneumonia, PE, COPD, DKA, ARF, appy, cholecystitis, CVA, Diverticulitis, Homicidal, Suic idal, threat to staff... and all critical care pts) @ -[Yes, bradycardia, electrolyte abnormality - Lab Data Result diagrams: 01/07/23 18:32 01/07/23 20:08 Lab Results 01/07/23 01/07/23 01/07/23 Range/Units 18:32 18:32 18:32 WBC 9.0 (3.8-10.6) k/uL RBC 3.50 L (3.80-5.40) m/uL Hgb 10.4 L (11.4-16.0) gm/dL Hct 32.4 L (34.0-46.0) % MCV 92.6 (80.0-100.0) fL MCH 29.7 (25.0-35.0) pg MCHC 32.1 (31.0-37.0) g/dL RDW 13.1 (11.5-15.5) % Plt Count 224 (150-450) k/uL MPV 8.2 Neutrophils % 67 % Lymphocytes % 25 % Monocytes % 5 % Eosinophils % 2 % Basophils % 0 % Neutrophils # 6.1 (1.3-7.7) k/uL Lymphocytes # 2.2 (1.0-4.8) k/uL Monocytes # 0.4 (0-1.0) k/uL Eosinophils # 0.2 (0-0.7) k/uL Basophils # 0.0 (0-0.2) k/uL PT (10.0-12.5) sec INR (<1.2) APTT (22.0-30.0) sec Sodium 131 L (137-145) mmol/L Potassium 7.0 H* (3.5-5.1) mmol/L Chloride 103 (98-107) mmol/L Carbon Dioxide 19 L (22-30) mmol/L Anion Gap 9 mmol/L BUN 31 H (7-17) mg/dL Creatinine 1.61 H (0.52-1.04) mg/dL Est GFR (CKD-EPI)AfAm 35 (>60 ml/min/1.73 sqM) Est GFR (CKD-EPI)NonAf 31 (>60 ml/min/1.73 sqM) Glucose 151 H (74-99) mg/dL Calcium 9.2 (8.4-10.2) mg/dL Magnesium 1.7 (1.6-2.3) mg/dL Total Bilirubin 0.4 (0.2-1.3) mg/dL AST 24 (14-36) U/L ALT 20 (4-34) U/L Alkaline Phosphatase 58 (38-126) U/L Troponin I (0.000-0.034) ng/mL Total Protein 6.8 (6.3-8.2) g/dL Albumin 4.0 (3.5-5.0) g/dL Urine Color Yellow Urine Appearance Turbid H (Clear) Urine pH 5.0 (5.0-8.0) Ur Specific [place] 1.016 (1.001-1.035) Urine Protein 1+ H (Negative) Urine Glucose (UA) Trace H (Negative) Urine Ketones Negative (Negative) Urine Blood Small H (Negative) Urine Nitrite Negative (Negative) Urine Bilirubin Negative (Negative) Urine Urobilinogen <2.0 (<2.0) mg/dL Ur Leukocyte Esterase Large H (Negative) Urine RBC 44 H (0-5) /hpf Urine WBC 160 H (0-5) /hpf Urine WBC Clumps Many H (None) /hpf Ur Squamous Epith Cells 32 H (0-4) /hpf Urine Bacteria Many H (None) /hpf Hyaline Casts 15 H (0-2) /lpf Urine Mucus Occasional H (None) /hpf 01/07/23 01/07/23 01/07/23 Range/Units 18:32 19:23 20:08 WBC (3.8-10.6) k/uL RBC (3.80-5.40) m/uL Hgb (11.4-16.0) gm/dL Hct (34.0-46.0) % MCV (80.0-100.0) fL MCH (25.0-35.0) pg MCHC (31.0-37.0) g/dL RDW (11.5-15.5) % Plt Count (150-450) k/uL MPV Neutrophils % % Lymphocytes % % Monocytes % % Eosinophils % % Basophils % % Neutrophils # (1.3-7.7) k/uL Lymphocytes # (1.0-4.8) k/uL Monocytes # (0-1.0) k/uL Eosinophils # (0-0.7) k/uL Basophils # (0-0.2) k/uL PT 11.2 (10.0-12.5) sec INR 1.0 (<1.2) APTT 24.6 (22.0-30.0) sec Sodium 132 L (137-145) mmol/L Potassium 6.1 H* (3.5-5.1) mmol/L Chloride 105 (98-107) mmol/L Carbon Dioxide 19 L (22-30) mmol/L Anion Gap 8 mmol/L BUN 31 H (7-17) mg/dL Creatinine 1.51 H (0.52-1.04) mg/dL Est GFR (CKD-EPI)AfAm 38 (>60 ml/min/1.73 sqM) Est GFR (CKD-EPI)NonAf 33 (>60 ml/min/1.73 sqM) Glucose 122 H (74-99) mg/dL Calcium 8.9 (8.4-10.2) mg/dL Magnesium (1.6-2.3) mg/dL Total Bilirubin (0.2-1.3) mg/dL AST (14-36) U/L ALT (4-34) U/L Alkaline Phosphatase (38-126) U/L Troponin I 0.012 (0.000-0.034) ng/mL Total Protein (6.3-8.2) g/dL Albumin (3.5-5.0) g/dL Urine Color Urine Appearance (Clear) Urine pH (5.0-8.0) Ur Specific [place] (1.001-1.035) Urine Protein (Negative) Urine Glucose (UA) (Negative) Urine Ketones (Negative) Urine Blood (Negative) Urine Nitrite (Negative) Urine Bilirubin (Negative) Urine Urobilinogen (<2.0) mg/dL Ur Leukocyte Esterase (Negative) Urine RBC (0-5) /hpf Urine WBC (0-5) /hpf Urine WBC Clumps (None) /hpf Ur Squamous Epith Cells (0-4) /hpf Urine Bacteria (None) /hpf Hyaline Casts (0-2) /lpf Urine Mucus (None) /hpf Critical Care Time Critical Care Time: Yes Total Critical Care Time: 35 Disposition Clinical Impression: UTI (urinary tract infection), Dehydration, Hyperkalemia Disposition: ADMITTED IP TO THIS HOSP Condition: Stable Is patient prescribed a controlled substance at d/c from ED?: No Referrals: Ryan Escalona DO [Primary Care Provider] - 1-2 days Time of Disposition: 21:10
[2023-01-07] MEDS ORDERED: ACETAMINOPHEN TAB 325 MG TAB PO STA (18:59)
[2023-01-07 19:03] LABS: Basophils % (A) 0 %; Eosinophils # (A) 0.2 k/uL (0-0.7); Eosinophils % (A) 2 %; HCT 32.4 % (34.0-46.0); HGB 10.4 gm/dL (11.4-16.0); Lymphocytes # (A) 2.2 k/uL (1.0-4.8); Lymphocytes % (A) 25 %; MCH 29.7 pg (25.0-35.0); MCHC 32.1 g/dL (31.0-37.0); MCV 92.6 fL (80.0-100.0); Mean Platelet Volume 8.2; Monocytes # (A) 0.4 k/uL (0-1.0); Monocytes % (A) 5 %; Neutrophils # (A) 6.1 k/uL (1.3-7.7); Neutrophils % (A) 67 %; Platelet Count 224 k/uL (150-450); RDW 13.1 % (11.5-15.5)
[2023-01-07 19:13] LABS: ALT 20 U/L (4-34); African American GFR (CKD) 35 (>60 ml/min/1.73 sqM); Anion Gap 9 mmol/L; Blood Urea Nitrogen 31 mg/dL (7-17); Calcium 9.2 mg/dL (8.4-10.2); Carbon Dioxide 19 mmol/L (22-30); Chloride 103 mmol/L (98-107); Glucose 151 mg/dL (74-99); Non-African American GFR(CKD) 31 (>60 ml/min/1.73 sqM); Sodium 131 mmol/L (137-145); Total Bilirubin 0.4 mg/dL (0.2-1.3); Total Protein 6.8 g/dL (6.3-8.2)
[2023-01-07 19:22] LABS: AST 24 U/L (14-36); Alkaline Phosphatase 58 U/L (38-126); Magnesium 1.7 mg/dL (1.6-2.3)
[2023-01-07] MEDS ORDERED: SODIUM POLYSTYRENE SULFONATE 15 GM/60 ML BOTTLE PO ONE (19:34)
[2023-01-07 19:37] LABS: Partial Thromboplastin Time 24.6 sec (22.0-30.0); Prothrombin Time 11.2 sec (10.0-12.5)
[2023-01-07 19:40] LABS: Appearance,Urine Turbid (Clear); Bacteria,Urine Many /hpf; Bilirubin,Urine Negative (Negative); Blood,Urine Small (Negative); Color,Urine Yellow; Glucose,Urine (UA) Trace (Negative); Hyaline Casts,Urine 15 /lpf (0-2); Ketones,Urine Negative (Negative); Leukocyte Esterase,Urine Large (Negative); Mucus,Urine Occasional /hpf; Nitrite,Urine Negative (Negative); Protein,Urine 1+ (Negative); RBC,Urine 44 /hpf (0-5); Specific Gravity,Urine 1.016 (1.001-1.035); Squamous Epithelial Cell,Urine 32 /hpf (0-4); Urobilinogen,Urine <2.0 mg/dL (<2.0); WBC,Urine 160 /hpf (0-5)
[2023-01-07] MEDS ORDERED: CALCIUM GLUCONATE IN NACL 1 GM in SALINE 1 100ML.BAG IVPB ONE (19:45)
[2023-01-07 20:34] LABS: African American GFR (CKD) 38 (>60 ml/min/1.73 sqM); Anion Gap 8 mmol/L; Blood Urea Nitrogen 31 mg/dL (7-17); Calcium 8.9 mg/dL (8.4-10.2); Carbon Dioxide 19 mmol/L (22-30); Chloride 105 mmol/L (98-107); Glucose 122 mg/dL (74-99); Non-African American GFR(CKD) 33 (>60 ml/min/1.73 sqM); Sodium 132 mmol/L (137-145)
[2023-01-07] MEDS ORDERED: cefTRIAXone IN SWFI 1,000 MG/10 ML SYRINGE IVP STA (20:41)
[2023-01-07 20:58] LABS: Potassium 6.1 mmol/L (3.5-5.1)
[2023-01-07] MEDS ORDERED: NALOXONE 0.4 MG/ML 1 ML VIAL IV PRN (21:06)
[2023-01-07] MEDS: SODIUM CHLORIDE 0.9% 1,000 ML IV SCH (22:12)
--- NOTE | 2023-01-08 00:22 | P.HPIM ---
History of Present Illness H&P Date: 01/07/23 Patient is a 77-year-old female with a PMH of type II DM, gout, hypertension, and hyperlipidemia who presented to the emergency room with complaints of hypotension and hypoglycemia. History was supplemented by the patient's daughter at the bedside. Patient reports that over the past 3-4 days, she has had decreased appetite and has been eating and drinking significantly less. Earlier today, she also had myalgias and generalized weakness, and checked her blood pressure which was 70s-80s systolic and heart rate was low ranging from 30s to 40s. She also noticed that her blood glucose was low this morning at 55. She denied experiencing urinary complaints, chest discomfort, shortness of breath, fever, chills, cough, nausea, vomiting, abdominal pain, diarrhea. Upon arrival in the emergency room, the patient's BP was 94/44 with pulse 48, temp 97.4F, and SpO2 96% on room air. Laboratory evaluation revealed sodium 131, potassium 7.0 (hemolyzed) and subsequently 6.1, BUN 31, creatinine 1.6 (baseline 1.0), glucose 151, and an abnormal UA consistent with UTI. EKG reveals sinus bradycardia at [address]/T-wave changes noted as reviewed by me. ED documentation reviewed and case discussed with ED provider. Review of systems: Pertinent positives and negatives as discussed in HPI, a complete review of systems was performed and all other systems are negative. Physical examination: Vital signs reviewed General: non toxic, no distress, appears at stated age, morbidly obese Derm: no unusual rashes/lesions, warm Head: atraumatic, normocephalic, symmetric Eyes: EOMI, no lid lag, anicteric sclera, pupils equal round reactive to light ENT: Nose and ears atraumatic Neck: No cervical lymphadenopathy, trachea midline, supple Mouth: no lip lesion, mucus membranes dry Cardiovascular: S1S2 reg, no murmur, positive dorsalis pedis pulse bilateral, no edema Lungs: CTA bilateral, no rhonchi, no rales, no accessory muscle use Abdominal: soft, nontender to palpation, no guarding Ext: muscle strength 5 out of 5 in all 4 extremities grossly, no gross muscle atrophy, no contractures, Neuro: CN II-XI grossly intact, no gross focal neuro deficits Psych: Alert, oriented, appropriate affect Assessment: Hypotension, suspected to dehydration in setting of UTI Acute kidney injury, suspect due to poor oral intake and dehydration Hyperkalemia, likely due to above Bradycardia, suspect due to severe hyperkalemia Hypoglycemia, likely due to poor oral intake Chronic conditions: Hypertension, hyperlipidemia Imaging: EKG reveals sinus bradycardia at [address]/T-wave changes noted as reviewed by me. Data Review: Upon arrival in the emergency room, the patient's BP was 94/44 with pulse 48, temp 97.4F, and SpO2 96% on room air. Laboratory evaluation revealed sodium 131, potassium 7.0 (hemolyzed) and subsequently 6.1, BUN 31, creatinine 1.6 (baseline 1.0), glucose 151, and an abnormal UA consistent with UTI. Plan: Continue with IV fluids normal saline 100 mL/h Continue ceftriaxone 2 g daily Follow up urine culture Cardiac monitoring Monitor BMP Status post Kayexalate 30 g and calcium gluconate 1 g Insulin sliding scale blood glucose monitoring Hold off on home antihypertensives at this time Continue remaining home medications DVT prophylaxis: Lovenox subcu The patient is admitted with an anticipated greater than 2 midnight stay for evaluation of hypotension CODE STATUS: Full Code Discussed with: Patient Anticipated discharge place: Home Past Medical History Past Medical History: Chest Pain / Angina, Diabetes Mellitus, GERD/Reflux, Hyperlipidemia, Hypertension Additional Past Medical History / Comment(s): CHRONIC UTI. Ulcers. Arthritis. Anxiety. History of Any Multi-Drug Resistant Organisms: None Reported Past Surgical History: Section, Cholecystectomy, Hernia Repair, Hys terectomy Additional Past Surgical History / Comment(s): Umbilical hernia repair. Lt catarct removed-lens implant. Laser eye sx. Rt carpal tunnel release Past Anesthesia/Blood Transfusion Reactions: No Reported Reaction Past Psychological History: Anxiety Smoking Status: Never smoker Past Alcohol Use History: None Reported Past Drug Use History: None Reported - Past Family History Father Family Medical History: Diabetes Mellitus Mother Family Medical History: No Reported History Medications and Allergies Home Medications Medication Instructions Recorded Confirmed Type Insulin Glargine [Lantus Vial] 58 unit SQ DAILY 10/30/15 01/07/23 History Lovastatin [Mevacor] 20 mg PO HS 10/30/15 01/07/23 History Omeprazole 20 mg PO DAILY 11/05/15 01/07/23 History Methenamine Hippurate [Hiprex] 1 gm PO BID 05/05/17 01/07/23 History Cholecalciferol [Vitamin D3 (25 25 mcg PO DAILY 12/18/22 01/07/23 History Mcg = 1000 Iu)] Ergocalciferol [Vitamin D2 (1250 1,250 mcg PO WE 12/18/22 01/07/23 History Mcg = 71773 Iu)] Gabapentin [Neurontin] 300 mg PO BID 12/18/22 01/07/23 History allopurinoL 200 mg PO HS 12/18/22 01/07/23 History amLODIPine [Norvasc] 10 mg PO DAILY 30 Days #30 tab 12/19/22 01/07/23 Rx lisinopriL [Zestril] 20 mg PO HS 30 Days #30 tab 12/19/22 01/07/23 Rx Citalopram Hydrobromide [CeleXA] 20 mg PO DAILY 01/07/23 01/07/23 History Allergies Allergy/AdvReac Type Severity Reaction Status Date / Time No Known Allergies Allergy Verified 01/07/23 20:06 Physical Exam Vitals: Vital Signs Temp Pulse Resp BP Pulse Ox 01/07/23 22:00 59 L 18 133/59 98 01/07/23 19:28 43 L 16 111/90 99 01/07/23 18:48 40 L 18 100/43 96 01/07/23 17:16 97.4 F L 48 L 18 94/44 96 Intake and Output 01/07/23 01/07/23 01/07/23 06:59 14:59 22:59 Other: Weight 88.451 kg Results CBC & Chem 7: 01/07/23 18:32 01/07/23 20:08 Labs: Abnormal Lab Results - Last 24 Hours (Table) 01/07/23 01/07/23 01/07/23 Range/Units 18:32 18:32 18:32 RBC 3.50 L (3.80-5.40) m/uL Hgb 10.4 L (11.4-16.0) gm/dL Hct 32.4 L (34.0-46.0) % Sodium 131 L (137-145) mmol/L Potassium 7.0 H* (3.5-5.1) mmol/L Carbon Dioxide 19 L (22-30) mmol/L BUN 31 H (7-17) mg/dL Creatinine 1.61 H (0.52-1.04) mg/dL Glucose 151 H (74-99) mg/dL Urine Appearance Turbid H (Clear) Urine Protein 1+ H (Negative) Urine Glucose (UA) Trace H (Negative) Urine Blood Small H (Negative) Ur Leukocyte Esterase Large H (Negative) Urine RBC 44 H (0-5) /hpf Urine WBC 160 H (0-5) /hpf Urine WBC Clumps Many H (None) /hpf Ur Squamous Epith Cells 32 H (0-4) /hpf Urine Bacteria Many H (None) /hpf Hyaline Casts 15 H (0-2) /lpf Urine Mucus Occasional H (None) /hpf 01/07/23 Range/Units 20:08 RBC (3.80-5.40) m/uL Hgb (11.4-16.0) gm/dL Hct (34.0-46.0) % Sodium 132 L (137-145) mmol/L Potassium 6.1 H* (3.5-5.1) mmol/L Carbon Dioxide 19 L (22-30) mmol/L BUN 31 H (7-17) mg/dL Creatinine 1.51 H (0.52-1.04) mg/dL Glucose 122 H (74-99) mg/dL Urine Appearance (Clear) Urine Protein (Negative) Urine Glucose (UA) (Negative) Urine Blood (Negative) Ur Leukocyte Esterase (Negative) Urine RBC (0-5) /hpf Urine WBC (0-5) /hpf Urine WBC Clumps (None) /hpf Ur Squamous Epith Cells (0-4) /hpf Urine Bacteria (None) /hpf Hyaline Casts (0-2) /lpf Urine Mucus (None) /hpf
[2023-01-08 05:43] LABS: Glucose,Whole Blood 72 mg/dL (70-110)
[2023-01-08] MEDS: INSULIN ASPART (NovoLOG) 100 UNIT/ML VIAL SQ SCH ×4 (05:57→20:21)
[2023-01-08] MEDS: SODIUM CHLORIDE 0.9% 1,000 ML IV SCH ×2 (06:22→17:32)
[2023-01-08] MEDS: GABAPENTIN 300 MG CAP PO SCH ×2 (09:11→20:20)
[2023-01-08] MEDS: ENOXAPARIN 40 MG/0.4 ML SYRINGE SQ SCH (09:11)
[2023-01-08] MEDS: CITALOPRAM HYDROBROMIDE 20 MG TAB PO SCH (09:11)
[2023-01-08 09:12] LABS: HCT 31.5 % (34.0-46.0); HGB 10.1 gm/dL (11.4-16.0); MCH 29.4 pg (25.0-35.0); MCHC 32.1 g/dL (31.0-37.0); MCV 91.6 fL (80.0-100.0); Mean Platelet Volume 8.8; Platelet Count 201 k/uL (150-450); RBC 3.44 m/uL (3.80-5.40); RDW 13.3 % (11.5-15.5); WBC 6.9 k/uL (3.8-10.6)
[2023-01-08 10:00] LABS: African American GFR (CKD) 61 (>60 ml/min/1.73 sqM); Anion Gap 9 mmol/L; Blood Urea Nitrogen 23 mg/dL (7-17); Calcium 9.3 mg/dL (8.4-10.2); Carbon Dioxide 19 mmol/L (22-30); Chloride 108 mmol/L (98-107); Glucose 166 mg/dL (74-99); Non-African American GFR(CKD) 53 (>60 ml/min/1.73 sqM); Sodium 136 mmol/L (137-145)
[2023-01-08 11:45] LABS: Glucose,Whole Blood 151 mg/dL (70-110)
--- NOTE | 2023-01-08 12:43 | P.PN ---
Subjective Progress Note Date: 01/08/23 Hospital Course: 77-year-old female with a PMH of type II DM, gout, hypertension, and h yperlipidemia who presented to the emergency room with complaints of hypotension and hypoglycemia. Upon arrival in the emergency room, the patient's BP was 94/44 with pulse 48, temp 97.4F, and SpO2 96% on room air. Laboratory evaluation revealed sodium 131, potassium 7.0 (hemolyzed) and subsequently 6.1, BUN 31, creatinine 1.6 (baseline 1.0), glucose 151, and an abnormal UA consistent with UTI. EKG reveals sinus bradycardia at [address]/T-wave changes noted. Renal function and potassium improved. Blood pressure stable. Subjective: Patient seen and examined at bedside. No acute events overnight. Does have urinary frequency Pertinent positives and negatives as discussed above, a complete review of systems was performed and all other systems are negative. Vitals Signs Reviewed. General: nontoxic, no distress, appears at stated age, morbidly obese Derm: warm, dry Head: atraumatic, normocephalic, symmetric Eyes: EOMI, no lid lag, anicteric sclera Mouth: no lip lesion, mucus membranes moist Cardiovascular: S1S2 reg, no murmur Lungs: CTA bilateral, no rhonchi, no rales , no accessory muscle use Abdominal: soft, nontender to palpation, no guarding, no appreciable o rganomegaly Ext: no gross muscle atrophy, no edema, no contractures Neuro: CN II-XI grossly intact, no focal neuro deficits Psych: Alert, oriented, appropriate affect Data Reviewed Today: Pertinent Labs: Hemoglobin 10.1, sodium 136, potassium 5 creatinine 1.03 Imaging: No new imaging Assessment and Plan: Active: Urinary tract infection Acute kidney injury, suspect due to poor oral intake and dehydration, resolving Normocytic anemia Mild hypovolemic hyponatremia, resolved Non-anion gap metabolic acidosis -Continue IV ceftriaxone 2 g every 24 hours -Urinalysis has a lot of squamous epithelial cells -Urine culture pending -Acute kidney injury likely prerenal, improved with IV fluids, continue normal saline at 100 mL an hour -Continue to hold lisinopril and amlodipine -No active bleeding, continue to monitor, repeat CBC and BMP tomorrow -Likely prerenal cause for her metabolic acidosis Resolved: Hypotension, resolved Hyperkalemia Bradycardia Hypoglycemia Chronic: Hypertension and dyslipidemia DVT ppx: Lovenox Code status: Full code Anticipated discharge place: Home Anticipated discharge time: Likely tomorrow Objective - Vital Signs Vital signs: Vital Signs Temp 98.0 F 01/08/23 08:00 Pulse 63 01/08/23 12:00 Resp 18 01/08/23 12:00 BP 157/70 01/08/23 12:00 Pulse Ox 98 01/08/23 12:00 FiO2 Intake & Output 01/07/23 01/08/23 01/08/23 18:59 06:59 18:59 Weight 88.451 kg 88.451 kg Other: Voiding Method Toilet Toilet Diaper # Voids 1 - Labs CBC & Chem 7: 01/08/23 09:01 01/08/23 09:01 Labs: Abnormal Lab Results - Last 24 Hours (Table) 01/07/23 01/07/23 01/07/23 Range/Units 18:32 18:32 18:32 RBC 3.50 L (3.80-5.40) m/uL Hgb 10.4 L (11.4-16.0) gm/dL Hct 32.4 L (34.0-46.0) % Sodium 131 L (137-145) mmol/L Potassium 7.0 H* (3.5-5.1) mmol/L Chloride (98-107) mmol/L Carbon Dioxide 19 L (22-30) mmol/L BUN 31 H (7-17) mg/dL Creatinine 1.61 H (0.52-1.04) mg/dL Glucose 151 H (74-99) mg/dL POC Glucose (mg/dL) (70-110) mg/dL Urine Appearance Turbid H (Clear) Urine Protein 1+ H (Negative) Urine Glucose (UA) Trace H (Negative) Urine Blood Small H (Negative) Ur Leukocyte Esterase Large H (Negative) Urine RBC 44 H (0-5) /hpf Urine WBC 160 H (0-5) /hpf Urine WBC Clumps Many H (None) /hpf Ur Squamous Epith Cells 32 H (0-4) /hpf Urine Bacteria Many H (None) /hpf Hyaline Casts 15 H (0-2) /lpf Urine Mucus Occasional H (None) /hpf 01/07/23 01/08/23 01/08/23 Range/Units 20:08 09:01 09:01 RBC 3.44 L (3.80-5.40) m/uL Hgb 10.1 L (11.4-16.0) gm/dL Hct 31.5 L (34.0-46.0) % Sodium 132 L 136 L (137-145) mmol/L Potassium 6.1 H* (3.5-5.1) mmol/L Chloride 108 H (98-107) mmol/L Carbon Dioxide 19 L 19 L (22-30) mmol/L BUN 31 H 23 H (7-17) mg/dL Creatinine 1.51 H (0.52-1.04) mg/dL Glucose 122 H 166 H (74-99) mg/dL POC Glucose (mg/dL) (70-110) mg/dL Urine Appearance (Clear) Urine Protein (Negative) Urine Glucose (UA) (Negative) Urine Blood (Negative) Ur Leukocyte Esterase (Negative) Urine RBC (0-5) /hpf Urine WBC (0-5) /hpf Urine WBC Clumps (None) /hpf Ur Squamous Epith Cells (0-4) /hpf Urine Bacteria (None) /hpf Hyaline Casts (0-2) /lpf Urine Mucus (None) /hpf 01/08/23 Range/Units 11:43 RBC (3.80-5.40) m/uL Hgb (11.4-16.0) gm/dL Hct (34.0-46.0) % Sodium (137-145) mmol/L Potassium (3.5-5.1) mmol/L Chloride (98-107) mmol/L Carbon Dioxide (22-30) mmol/L BUN (7-17) mg/dL Creatinine (0.52-1.04) mg/dL Glucose (74-99) mg/dL POC Glucose (mg/dL) 151 H (70-110) mg/dL Urine Appearance (Clear) Urine Protein (Negative) Urine Glucose (UA) (Negative) Urine Blood (Negative) Ur Leukocyte Esterase (Negative) Urine RBC (0-5) /hpf Urine WBC (0-5) /hpf Urine WBC Clumps (None) /hpf Ur Squamous Epith Cells (0-4) /hpf Urine Bacteria (None) /hpf Hyaline Casts (0-2) /lpf Urine Mucus (None) /hpf
[2023-01-08 20:15] LABS: Glucose,Whole Blood 226 mg/dL (70-110)
[2023-01-08] MEDS ORDERED: allopurinoL 100 MG TAB PO SCH (21:00)
[2023-01-08] MEDS ORDERED: ATORVASTATIN 10 MG TAB PO SCH (21:00)
[2023-01-09] MEDS: SODIUM CHLORIDE 0.9% 1,000 ML IV SCH (00:25)
[2023-01-09] MEDS ORDERED: MELATONIN 5 MG TABLET PO PRN (01:00)
[2023-01-09 05:07] VITALS: RESP 16
[2023-01-09 06:07] LABS: Glucose,Whole Blood 95 mg/dL (70-110)
[2023-01-09] MEDS: INSULIN ASPART (NovoLOG) 100 UNIT/ML VIAL SQ SCH ×2 (06:07→11:38)
[2023-01-09] MEDS: ENOXAPARIN 40 MG/0.4 ML SYRINGE SQ SCH (09:00)
[2023-01-09] MEDS: GABAPENTIN 300 MG CAP PO SCH (09:00)
[2023-01-09] MEDS ORDERED: amLODIPine 10 MG TAB PO SCH (09:00)
[2023-01-09] MEDS ORDERED: INSULIN DETEMIR (LEVEMIR) 100 UNIT/ML SYR SQ SCH (09:00)
[2023-01-09] MEDS: CITALOPRAM HYDROBROMIDE 20 MG TAB PO SCH (09:00)
[2023-01-09 09:59] LABS: Basophils % (A) 0 %; Eosinophils # (A) 0.2 k/uL (0-0.7); Eosinophils % (A) 3 %; HCT 34.3 % (34.0-46.0); Lymphocytes % (A) 29 %; MCH 29.7 pg (25.0-35.0); MCHC 32.1 g/dL (31.0-37.0); MCV 92.5 fL (80.0-100.0); Mean Platelet Volume 8.3; Monocytes # (A) 0.3 k/uL (0-1.0); Monocytes % (A) 5 %; Neutrophils # (A) 4.1 k/uL (1.3-7.7); Neutrophils % (A) 61 %; Platelet Count 224 k/uL (150-450); RBC 3.71 m/uL (3.80-5.40); RDW 13.1 % (11.5-15.5); WBC 6.8 k/uL (3.8-10.6)
[2023-01-09 10:02] LABS: African American GFR (CKD) 86 (>60 ml/min/1.73 sqM); Anion Gap 9 mmol/L; Blood Urea Nitrogen 14 mg/dL (7-17); Calcium 9.3 mg/dL (8.4-10.2); Carbon Dioxide 21 mmol/L (22-30); Chloride 109 mmol/L (98-107); Glucose 205 mg/dL (74-99); Magnesium 1.4 mg/dL (1.6-2.3); Non-African American GFR(CKD) 75 (>60 ml/min/1.73 sqM); Potassium 4.7 mmol/L (3.5-5.1); Sodium 139 mmol/L (137-145)
[2023-01-09] MEDS: MAGNESIUM SULFATE-D5W PMX 1 GM in DEXTROSE/WATER 1 100ML.BAG IVPB SCH ×2 (10:35→11:38)
--- NOTE | 2023-01-09 11:10 | P.DS ---
Providers Date of admission: 01/07/23 21:07 Expected date of discharge: 01/09/23 Attending physician: Veena Ca MD Primary care physician: Ryan Escalona [facility] Course: Discharge Diagnosis: Urinary tract infection Acute kidney injury, suspect due to poor oral intake and dehydration Normocytic anemia Mild hypovolemic hyponatremia Non-anion gap metabolic acidosis Hypotension Hyperkalemia Hypomagnesemia Bradycardia Hypoglycemia Hospital Course: 77-year-old female with a PMH of type II DM, gout, hypertension, and hyperlipidemia who presented to the emergency room with complaints of hypotension and hypoglycemia. Upon arrival in the emergency room, the patient's BP was 94/44 with pulse 48, temp 97.4F, and SpO2 96% on room air. Laboratory evaluation revealed sodium 131, potassium 7.0 (hemolyzed) and subsequently 6.1, BUN 31, creatinine 1.6 (baseline 1.0), glucose 151, and an abnormal UA consistent with UTI. EKG reveals sinus bradycardia at [address]/T-wave changes noted. Renal function and potassium improved. Blood pressure stable. Urinalysis is a lot of squamous epithelial cells. Patient is symptomatic with increased urinary frequency, will treat empirically with oral antibiotics. Insulin decreased, will need to be increased accordingly per PCP. Patient seen and examined at bedside. Vital signs reviewed and stable. General: nontoxic, no distress, appears at stated age Derm: warm, dry Head: atraumatic, normocephalic, symmetric Eyes: EOMI, no lid lag, anicteric sclera Mouth: no lip lesion, mucus membranes moist Cardiovascular: S1S2 reg, no murmur Lungs: CTA bilateral, no rhonchi, no rales , no accessory muscle use Abdominal: soft, nontender to palpation, no guarding, no appreciable organomegaly Ext: no gross muscle atrophy, no edema, no contractures Neuro: CN II-XI grossly intact, no focal neuro deficits Psych: Alert, oriented, appropriate affect A total of 33 minutes of time were spent preparing this complex discharge summary. Patient was discharged on 01/09/23 at 10:23. Patient Condition at Discharge: Stable Plan - Discharge Summary Discharge Rx Participant: No New Discharge Prescriptions: New Cefdinir 300 mg PO Q12HR #6 cap Lactobacillus Acidophilus [Acidophilus Probiotic] 1 each PO DAILY #30 capsule Continue Lovastatin [Mevacor] 20 mg PO HS Omeprazole 20 mg PO DAILY Gabapentin [Neurontin] 300 mg PO BID Cholecalciferol [Vitamin D3 (25 Mcg = 1000 Iu)] 25 mcg PO DAILY lisinopriL [Zestril] 20 mg PO HS 30 Days #30 tab Citalopram Hydrobromide [CeleXA] 20 mg PO DAILY allopurinoL 200 mg PO HS Ergocalciferol [Vitamin D2 (1250 Mcg = 62572 Iu)] 1,250 mcg PO WE amLODIPine [Norvasc] 10 mg PO DAILY 30 Days #30 tab Changed Insulin Glargine [Lantus Vial] 20 unit SQ DAILY #0 Discontinued Methenamine Hippurate [Hiprex] 1 gm PO BID Discharge Medication List Lovastatin [Mevacor] 20 mg PO HS 10/30/15 [History] Omeprazole 20 mg PO DAILY 11/05/15 [History] Cholecalciferol [Vitamin D3 (25 Mcg = 1000 Iu)] 25 mcg PO DAILY 12/18/22 [Histor y] Ergocalciferol [Vitamin D2 (1250 Mcg = 01681 Iu)] 1,250 mcg PO WE 12/18/22 [History] Gabapentin [Neurontin] 300 mg PO BID 12/18/22 [History] allopurinoL 200 mg PO HS 12/18/22 [History] amLODIPine [Norvasc] 10 mg PO DAILY 30 Days #30 tab 12/19/22 [Rx] lisinopriL [Zestril] 20 mg PO HS 30 Days #30 tab 12/19/22 [Rx] Citalopram Hydrobromide [CeleXA] 20 mg PO DAILY 01/07/23 [History] Cefdinir 300 mg PO Q12HR #6 cap 01/09/23 [Rx] Insulin Glargine [Lantus Vial] 20 unit SQ DAILY #0 01/09/23 [Rx] Lactobacillus Acidophilus [Acidophilus Probiotic] 1 each PO DAILY #30 capsule 01/09/23 [Rx] Follow up Appointment(s)/Referral(s): Ryan Escalona DO [Primary Care Provider] - 1-2 days (Office closed; please call [facility] to schedule follow up when office opens Wednesday.) Patient Instructions/Handouts: Acute Kidney Injury (DC), Urinary Tract Infection in Women (DC), Hypoglycemia in a Person with Diabetes (DC), Hyperkalemia (DC) Activity/Diet/Wound Care/Special Instructions: Please see your PCP. Take the reduced dose of insulin for now, and see your pcp for further increase. Discharge Disposition: HOME SELF-CARE
[2023-01-09 11:35] LABS: Glucose,Whole Blood 247 mg/dL (70-110)
[2023-01-09 11:53] VITALS: BP 156/74; PULSE 66; TEMP 97.8
[2023-01-09] MEDS ORDERED: lisinopriL 20 MG TAB PO SCH (21:00)
== END 2023-01-09 12:50 | disposition home or self-care (01) | DRG 690 ==
LOC: EC 17:13 → 3SCARD 21:07
PROVIDERS: ADMIT Internal Medicine; ATTEND Internal Medicine
DX: N39.0 Urinary tract infection, site not specified (principal); N17.9 Acute kidney failure, unspecified; E87.20 Acidosis, unspecified; E87.1 Hypo-osmolality and hyponatremia; E11.649 Type 2 diabetes mellitus with hypoglycemia without coma; R00.1 Bradycardia, unspecified; E86.0 Dehydration; D64.9 Anemia, unspecified; E86.1 Hypovolemia; E78.5 Hyperlipidemia, unspecified; M10.9 Gout, unspecified; E11.9 Type 2 diabetes mellitus without complications; I95.9 Hypotension, unspecified; R35.0 Frequency of micturition; E83.42 Hypomagnesemia; F41.9 Anxiety disorder, unspecified; E87.5 Hyperkalemia; Z79.899 Other long term (current) drug therapy; Z90.710 Acquired absence of both cervix and uterus; Z90.49 Acquired absence of other specified parts of digestive tract; Z87.19 Personal history of other diseases of the digestive system; Z98.42 Cataract extraction status, left eye; Z98.41 Cataract extraction status, right eye; I10 Essential (primary) hypertension
CPT/HCPCS: 36415; 80048; 80053; 81001; 83735; 84484; 85025; 85027; 85610; 85730; 87086; 94760; 96361; 96365; 96375; 99291

== ENCOUNTER 2023-10-28 17:26 | Emergency (ER) | payer MEDICARE ==
--- NOTE | 2023-10-28 17:46 | ED ---
Fall HPI - General Stated Complaint: Fall/R Shoulder Pain Time Seen by Provider: 10/28/23 17:41 Source: patient, family, RN notes reviewed - History of Present Illness Initial Comments: 78-year-old female presents the emergency department accompanied by her daughter for the chief complaint of a fall. Patient was taking out her dog this afternoon around 1540 when she tripped on the last step injuring her right shoulder, right ribs and left wrist. Patient denies hitting her head or loss conscious at the time this fall. Patient denies presyncopal symptoms before time of fall, states that she just tripped. Currently she is denying shortness of breath, chest pain or difficulty breathing. Is not on blood thinners. Patient states that on inspiration she is having right-sided chest pain. - Related Data Home Medications Medication Instructions Recorded Confirmed Lovastatin [Mevacor] 20 mg PO HS 10/30/15 01/07/23 Omeprazole 20 mg PO DAILY 11/05/15 01/07/23 Cholecalciferol [Vitamin D3 (25 25 mcg PO DAILY 12/18/22 01/07/23 Mcg = 1000 Iu)] Ergocalciferol [Vitamin D2 (1250 1,250 mcg PO WE 12/18/22 01/07/23 Mcg = 52123 Iu)] Gabapentin [Neurontin] 300 mg PO BID 12/18/22 01/07/23 allopurinoL 200 mg PO HS 12/18/22 01/07/23 Citalopram Hydrobromide [CeleXA] 20 mg PO DAILY 01/07/23 01/07/23 Previous Rx's Medication Instructions Recorded amLODIPine [Norvasc] 10 mg PO DAILY 30 Days #30 tab 12/19/22 lisinopriL [Zestril] 20 mg PO HS 30 Days #30 tab 12/19/22 Cefdinir 300 mg PO Q12HR #6 cap 01/09/23 Insulin Glargine [Lantus Vial] 20 unit SQ DAILY #0 01/09/23 Lactobacillus Acidophilus 1 each PO DAILY #30 capsule 01/09/23 [Acidophilus Probiotic] Allergies Allergy/AdvReac Type Severity Reaction Status Date / Time No Known Allergies Allergy Verified 10/28/23 18:00 Review of Systems ROS Statement: Those systems with pertinent positive or pertinent negative responses have been documented in the HPI. ROS Other: All systems not noted in ROS Statement are negative. Past Medical History Past Medical History: Chest Pain / Angina, Diabetes Mellitus, GERD/Reflux, Hyperlipidemia, Hypertension Additional Past Medical History / Comment(s): CHRONIC UTI. Ulcers. Arthritis. Anxiety. History of Any Multi-Drug Resistant Organisms: None Reported Past Surgical History: Appendectomy, Section, Cholecystectomy, Hernia Repair, Hysterectomy Additional Past Surgical History / Comment(s): Umbilical hernia repair. Lt catarct removed-lens implant. Laser eye sx. Rt carpal tunnel release Past Anesthesia/Blood Transfusion Reactions: No Reported Reaction Past Psychological History: Anxiety Smoking Status: Never smoker Past Alcohol Use History: None Reported Past Drug Use History: None Reported - Past Family History Mother Family Medical History: No Reported History General Exam - General Exam Comments Initial Comments: Visual Physical Exam Vital signs reviewed General: Well-appearing, nontoxic, no acute distress. Head: Normocephalic, atraumatic Eyes: PERRLA, EOMI ENT: Airway patent Chest: Nonlabored breathing Skin: No visual rash, normal skin tone Neuro: Alert and oriented 3 Musculoskeletal: No gross abnormalities General appearance: alert, in no apparent distress Head exam: Present: atraumatic, normocephalic, normal inspection Eye exam: Present: normal appearance, PERRL, EOMI. Absent: scleral icterus, conjunctival injection, periorbital swelling ENT exam: Present: normal exam, mucous membranes moist Neck exam: Present: normal inspection. Absent: tenderness, meningismus, lymphadenopathy Respiratory exam: Present: normal lung sounds bilaterally, chest wall tenderness (mid-axillary inferior ribs/chest tenderness, no crepitus or decreased breath sounds). Absent: respiratory distress, wheezes, rales Cardiovascular Exam: Present: regular rate, normal rhythm, normal heart sounds. Absent: systolic murmur, diastolic murmur, rubs, gallop, clicks GI/Abdominal exam: Present: soft, normal bowel sounds. Absent: distended, tenderness, guarding, rebound, rigid Right Shoulder Exam: Present: normal inspection, full ROM (full ROM with mild pain on extension), tenderness. Absent: swelling, laceration Vascular: Present: normal capillary refill, radial pulse (2+). Absent: vascular compromise Back exam: Present: normal inspection Neurological exam: Present: alert, oriented X3, CN II-XII intact Skin exam: Present: warm, dry, intact, normal color. Absent: rash Course Vital Signs 10/28/23 17:57 Temperature 98 F Pulse Rate 71 Respiratory 18 Rate Blood Pressure 169/67 O2 Sat by Pulse 98 Oximetry Medical Decision Making - Medical Decision Making Was pt. sent in by a medical professional or institution (SAMANTHA Garcia, RADIOLOGIST CHIEF OF BREAST IMAGING, urgent care, hospital, or [place] [facility] facility...) When possible be specific @ -No Did you speak to anyone other than the patient for history (EMS, parent, family, police, friend...)? What history was obtained from this source @ -Spoke to the patient's daughter at bedside who states that the patient did not hit her head or lose consciousness at the time of the fall. Additionally, patient is on a blood thinners. Did you review nursing and triage notes (agree or disagree)? Why? @ -I reviewed and agree with nursing and triage notes Were old charts reviewed (outside hosp., previous admission, EMS record, old EKG, old radiological studies, urgent care reports/EKG's, [place] [facility] facility records)? Report findings @ -No old charts were reviewed Differential Diagnosis (chest pain, altered mental status, abdominal pain women, abdominal pain men, vaginal bleeding, weakness, fever, dyspnea, syncope, headache, dizziness, GI bleed, back pain, seizure, CVA, palpatations, mental health, musculoskeletal)? @ -Differential Musculoskeletal Muscular strain, contusion, ligament sprain, fracture, arthritis, septic arthritis, bursitis, cellulitis, muscle spasm, nerve compression, DVT, arterial occlusion, herpes zoster, electrolyte abnormality, tumor.... This is not meant to be in all inclusive list EKG interpreted by me (3pts min.). @ -None X-rays interpreted by me (1pt min.). @ -X-ray of the right ribs with PA chest, right shoulder, left wrist reveals a right minimally offset fracture of the anterior lateral third rib, possible subtle nondisplaced fracture of the right anterior lateral fifth rib. Right shoulder and left wrist no acute osseous abnormality noted CT interpreted by me (1pt min.). @ -CT of the chest without contrast reveals nondisplaced fractures of right third, fourth, fifth, sixth and eighth ribs. There is no underlying thorax or pleural effusion. U/S interpreted by me (1pt. min.). @ -None done What testing was considered but not performed or refused? (CT, X-rays, U/S, labs)? Why? @ -None What meds were considered but not given or refused? Why? @ -None Did you discuss the management of the patient with other professionals (professionals i.e. , PA, RADIOLOGIST CHIEF OF BREAST IMAGING, lab, RT, psych nurse, social work job titles, keno terminal operator, teacher, operational intelligence officer, manager case management)? Give summary @ -No Was smoking cessation discussed for >3mins.? @ -No Was critical care preformed (if so, how long)? @ -No Were there social determinants of health that impacted care today? How? (Homelessness, low income, unemployed, alcoholism, drug addiction, transportation, low edu. Level, literacy, decrease access to med. care, [facility], rehab)? @ -No Was there de-escalation of care discussed even if they declined (Discuss DNR or withdrawal of care, Hospice)? DNR status @ -No What co-morbidities impacted this encounter? (DM, HTN, Smoking, COPD, CAD, Cancer, CVA, ARF, Chemo, Hep., AIDS, mental health diagnosis, sleep apnea, morbi d obesity)? @ -None Was patient admitted / discharged? Hospital course, mention meds given and route, prescriptions, significant lab abnormalities, going to OR and other pertinent info. @ -78-year-old female with a fall. On examination patient is in no signs of acute distress and has mild pain to palpation over the mid axillary right chest wall with no overlying crepitus or visual changes. With x-rays concerning for third and fifth anterior lateral rib fractures and patient's age in addition to symptoms of chest pain on inspiration she is sent for a CT of the chest for further evaluation. She is provided with pain medication. ET reveals nondisplaced fractures of the right third, fourth, fifth, sixth and eighth ribs. Patient is provided with a starter pack of Tylenol 3 and its dismember instructed how to use this. Recommend the patient follows up with her primary care provider next week for further evaluation. Continue supportive treatment at home and rest with minimal physical activity and lifting no more than 5 pounds. All questions answered at bedside and strict return parameters discussed, she has verbalized understanding. Disussed with Dr. rutherford Undiagnosed new problem with uncertain prognosis? @ -No Drug Therapy requiring intensive monitoring for toxicity (Heparin, Nitro, Insulin, Cardizem)? @ -No Were any procedures done? @ -No Diagnosis/symptom? @ -Fall, rib fracture Acute, or Chronic, or Acute on Chronic? @ -Acute Uncomplicated (without systemic symptoms) or Complicated (systemic symptoms)? @ -Uncomplicated Side effects of treatment? @ -No Exacerbation, Progression, or Severe Exacerbation? @ -No Poses a threat to life or bodily function? How? (Chest pain, USA, NV, pneumonia, PE, COPD, DKA, ARF, appy, cholecystitis, CVA, Diverticulitis, Homicidal, Suicid al, threat to staff... and all critical care pts) @ -No Disposition Clinical Impression: Fall, Ribs, multiple fractures Disposition: HOME SELF-CARE Condition: Good Instructions (If sedation given, give patient instructions): How to Use an Incentive Spirometer (ED), Rib Fracture (ED), Fall Prevention for Older Adults (ED) Additional Instructions: Return to the emergency department for any new or worsening symptoms. Continue symptomatic treatment at home with Tylenol, Motrin and rest. Use incentive spirometer as directed. Is patient prescribed a controlled substance at d/c from ED?: No Referrals: Ryan Escalona DO [Primary Care Provider] - 1-2 days Time of Disposition: 20:41
[2023-10-28 18:00] VITALS: RESP 18
[2023-10-28] MEDS: MORPHINE SULFATE 4 MG/ML SYRINGE IM STA (18:46)
--- NOTE | 2023-10-28 18:49 | XR ---
EXAMINATION TYPE: XR ribs 4 views RT w pa chest xray, XR shoulder complete 3 views RT, XR wrist compl ete 4 views LT DATE OF EXAM: 10/28/2023 COMPARISON: Chest 12/18/2022 HISTORY: 78-year-old female fall, injury, pain FINDINGS: Chest: Heart mildly enlarged. Diffuse interstitial density has a chronic appearance, unchanged from prior. N o consolidation, pneumothorax, or pleural effusion. Right RIBS: Subtle, minimally offset fracture of the right anterolateral third rib. Possible subtle nondisplaced fracture of the right anterolateral fifth rib. No other displaced rib fractures seen. Right shoulder: Moderate degenerative change of the AC joint. Bony irregularity at the greater tuberosity. No acute f racture, subluxation, or dislocation. Left wrist: The radiocarpal and distal radial ulnar joint as well as the midcarpal compartment appear intact. Mod erate to severe degenerative change first CMC joint. Vascular calcifications. No acute fracture, subl uxation, or dislocation. IMPRESSION: 1. Chest: Mild cardiomegaly and chronic changes. No acute process seen. 2. Right RIBS: Minimally offset fracture right anterolateral third rib. Possible subtle nondisplaced fracture right anterolateral fifth rib. 3. Right shoulder: Moderate AC joint OA and bony changes of chronic rotator cuff tendinopathy. No acu te osseous abnormality seen. 4. Left wrist: Moderate to severe OA at the basal joint of the thumb. No acute osseous abnormality se en.
--- NOTE | 2023-10-28 20:22 | CT ---
EXAMINATION TYPE: CT chest wo con DATE OF EXAM: 10/28/2023 COMPARISON: Radiograph 10/28/2023 HISTORY: 78-year-old female pain, right rib fractures after fall. TECHNIQUE: Contiguous axial scanning of the chest without IV contrast. Coronal/sagittal reconstructio ns performed. CT DLP: 550mGycm. Automatic exposure control utilized for a dose reduction. FINDINGS: The heart is upper limits of normal in size with a small anterior basilar pericardial effusion. Dense mitral annular calcifications. Aorta normal caliber with mild atherosclerotic arch calcifications and conventional vessel branching anatomy. A few prominent mediastinal lymph nodes measuring up to 9 mm. Minimal emphysematous change. No consolidation or pleural effusion. No pneumothorax seen. Strandy ate lectasis at the lung bases. Visualized upper abdomen shows a couple calcified granulomas in the spleen and cholecystectomy clips. Bones: Minimally offset to nondisplaced fractures of the right third, fourth, fifth, sixth, and eight h ribs. There is dish throughout the mid and lower thoracic spine and moderate to advanced degenerative disc disease elsewhere within the nonfused thoracic spine. IMPRESSION: 1. Minimally offset or nondisplaced fractures of the right third, fourth, fifth, sixth, and eighth ri bs. No underlying pneumothorax or pleural effusion. 2. 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 Moderate to advanced degenerative disc disease t hroughout the remainder of the nonfused levels.
[2023-10-28] MEDS: ACET/COD 300 MG/30 MG STARTER PACK 6 TAB BTL PO STA (21:17)
[2023-10-28 21:27] VITALS: BP 150/60; PULSE 65; TEMP 98.4
== END 2023-10-28 21:27 | disposition home or self-care (01) ==
LOC: EC 17:26
DX: R52 Pain, unspecified
CPT/HCPCS: 71250; 96372; 99284

== ENCOUNTER 2024-06-03 21:45 | Emergency (ER) | payer MEDICARE, OTHER ==
[2024-06-03 21:49] VITALS: RESP 18; TEMP 99
--- NOTE | 2024-06-03 22:14 | ED ---
General Adult HPI - General Chief complaint: Upper Respiratory Infection Stated complaint: Cough, Difficulty Breathing Time Seen by Provider: 06/03/24 21:50 Source: patient, RN notes reviewed, old records reviewed Mode of arrival: wheelchair Limitations: no limitations - History of Present Illness Initial comments: 78-year-old female presenting for evaluation of cough, nasal congestion, subjective fever and chills. Symptoms have been present for the past 24 hours. Patient states she saw her primary care provider who prescribed Augmentin and Tessalon Perles. This was Wednesday and she is presenting Wednesday evening. Patient denies history of asthma or COPD. Denies central chest pain. Denies abdominal pain nausea vomiting. - Related Data Home Medications Medication Instructions Recorded Confirmed Lovastatin [Mevacor] 20 mg PO HS 10/30/15 01/07/23 Omeprazole 20 mg PO DAILY 11/05/15 01/07/23 Cholecalciferol [Vitamin D3 (25 25 mcg PO DAILY 12/18/22 01/07/23 Mcg = 1000 Iu)] Ergocalciferol [Vitamin D2 (1250 1,250 mcg PO WE 12/18/22 01/07/23 Mcg = 14078 Iu)] Gabapentin [Neurontin] 300 mg PO BID 12/18/22 01/07/23 allopurinoL 200 mg PO HS 12/18/22 01/07/23 Citalopram Hydrobromide [CeleXA] 20 mg PO DAILY 01/07/23 01/07/23 Previous Rx's Medication Instructions Recorded amLODIPine [Norvasc] 10 mg PO DAILY 30 Days #30 tab 12/19/22 lisinopriL [Zestril] 20 mg PO HS 30 Days #30 tab 12/19/22 Cefdinir 300 mg PO Q12HR #6 cap 01/09/23 Insulin Glargine (Lantus) [Lantus 20 unit SQ DAILY #0 01/09/23 Vial] Lactobacillus Acidophilus 1 each PO DAILY #30 capsule 01/09/23 [Acidophilus Probiotic] Albuterol Inhaler [Ventolin Hfa 1 - 2 puff INHALATION Q4HR PRN #1 06/03/24 Inhaler] each Albuterol Nebulized [Ventolin 2.5 mg INHALATION Q4H #75 ml 06/03/24 Nebulized] Azithromycin [Zithromax Z Pack] 1 tab PO DIRECTED #6 tab 04/05/25 Allergies Allergy/AdvReac Type Severity Reaction Status Date / Time No Known Allergies Allergy Verified 06/03/24 21:49 Review of Systems ROS Statement: Those systems with pertinent positive or pertinent negative responses have been documented in the HPI. ROS Other: All systems not noted in ROS Statement are negative. Past Medical History Past Medical History: Chest Pain / Angina, Diabetes Mellitus, GERD/Reflux, Hyperlipidemia, Hypertension Additional Past Medical History / Comment(s): CHRONIC UTI. Ulcers. Arthritis. Anxiety. History of Any Multi-Drug Resistant Organisms: None Reported Past Surgical History: Appendectomy, Section, Cholecystectomy, Hernia Repair, Hysterectomy Additional Past Surgical History / Comment(s): Umbilical hernia repair. Lt catarct removed-lens implant. Laser eye sx. Rt carpal tunnel release Past Anesthesia/Blood Transfusion Reactions: No Reported Reaction Past Psychological History: Anxiety Smoking Status: Never smoker Past Alcohol Use History: None Reported Past Drug Use History: None Reported - Past Family History Mother Family Medical History: No Reported History General Exam Limitations: no limitations General appearance: alert, in no apparent distress Head exam: Present: atraumatic, normocephalic Eye exam: Present: normal appearance, PERRL ENT exam: Present: normal exam, mucous membranes moist Respiratory exam: Present: normal lung sounds bilaterally. Absent: respiratory distress, wheezes, rales, rhonchi Cardiovascular Exam: Present: regular rate, normal rhythm GI/Abdominal exam: Present: soft. Absent: distended, tenderness, guarding Extremities exam: Present: normal inspection, normal capillary refill. Absent: pedal edema, joint swelling, calf tenderness Neurological exam: Present: alert, oriented X3, CN II-XII intact. Absent: motor sensory deficit Psychiatric exam: Present: normal affect, normal mood Skin exam: Present: warm, dry, intact. Absent: cyanosis, diaphoretic Course Vital Signs 06/03/24 06/03/24 21:46 23:18 Temperature 99 F Pulse Rate 93 75 Respiratory 18 Rate Blood Pressure 166/69 O2 Sat by Pulse 97 Oximetry Medical Decision Making - Medical Decision Making Was pt. sent in by a medical professional or institution (, PA, SPOT CLEANER, urgent care, hospital, or long term...) When possible be specific @ -No Did you speak to anyone other than the patient for history (EMS, parent, family, police, friend...)? What history was obtained from this source @ -No Did you review nursing and triage notes (agree or disagree)? Why? @ -I reviewed and agree with nursing and triage notes Were old charts reviewed (outside hosp., previous admission, EMS record, old EKG, old radiological studies, urgent care reports/EKG's, long term records)? Report findings @ -No old charts were reviewed Differential Diagnosis upper respiratory infection, bronchitis, pneumonia EKG interpreted by me (3pts min.). @ -As above X-rays interpreted by me (1pt min.). @Chest x-ray is negative for pneumothorax, no consolidated pneumonia CT interpreted by me (1pt min.). @ -None done U/S interpreted by me (1pt. min.). @ -None done What testing was considered but not performed or refused? (CT, X-rays, U/S, labs)? Why? @ -None What meds were considered but not given or refused? Why? @ -None Did you discuss the management of the patient with other professionals (professionals i.e. , PA, SPOT CLEANER, lab, RT, psych nurse, social worker assistant, cartography supervisor, teacher, safety instruction police officer, caser in)? Give summary @ -No Was smoking cessation discussed for >3mins.? @ -No Was critical care preformed (if so, how long)? @ -No Were there social determinants of health that impacted care today? How? (Homelessness, low income, unemployed, alcoholism, drug addiction, transportation, low edu. Level, literacy, decrease access to med. care, residential, rehab)? @ -No Was there de-escalation of care discussed even if they declined (Discuss DNR or withdrawal of care, Hospice)? DNR status @ -No What co-morbidities impacted this encounter? (DM, HTN, Smoking, COPD, CAD, Cancer, CVA, ARF, Chemo, Hep., AIDS, mental health diagnosis, sleep apnea, morbid obesity)? @Diabetes, hypertension Was patient admitted / discharged? Hospital course, mention meds given and route, prescriptions, significant lab abnormalities, going to OR and other pertinent info. @ -78-year-old female with cough, congestion, subjective fever and chills. Patient family members have similar illness. Viral panel is negative. Chest x- ray is negative for focal pneumonia. Patient did have albuterol and Atrovent in the emergency department with significant improvement in symptoms. She will be placed on albuterol. She will follow closely with her primary care provider. Return parameters discussed. Undiagnosed new problem with uncertain prognosis? @ -No Drug Therapy requiring intensive monitoring for toxicity (Heparin, Nitro, Insulin, Cardizem)? @ -No Were any procedures done? @ -No Diagnosis/symptom? @Tracheobronchitis Acute, or Chronic, or Acute on Chronic? @ -Acute Uncomplicated (without systemic symptoms) or Complicated (systemic symptoms)? @ -Default Side effects of treatment? @ -No Exacerbation, Progression, or Severe Exacerbation? @ -No Poses a threat to life or bodily function? How? (Chest pain, USA, NV, pneumonia, PE, COPD, DKA, ARF, appy, cholecystitis, CVA, Diverticulitis, Homicidal, Suicidal, threat to staff... and all critical care pts) @ -No - Lab Data Lab Results 06/03/24 Range/Units 22:00 Influenza Type A (PCR) Not Detected (Not Detectd) Influenza Type B (PCR) Not Detected (Not Detectd) RSV (PCR) Not Detected (Not Detectd) SARS-CoV-2 (PCR) Not Detected (Not Detectd) Disposition Clinical Impression: Tracheobronchitis Disposition: HOME SELF-CARE Condition: Fair Instructions (If sedation given, give patient instructions): Upper Respiratory Infection (ED) Prescriptions: Albuterol Inhaler [Ventolin Hfa Inhaler] 1 - 2 puff INHALATION Q4HR PRN #1 each PRN Reason: Shortness Of Breath Albuterol Nebulized [Ventolin Nebulized] 2.5 mg INHALATION Q4H #75 ml Azithromycin [Zithromax Z Pack] 1 tab PO DIRECTED #6 tab Is patient prescribed a controlled substance at d/c from ED?: No Referrals: Ryan Escalona DO [Primary Care Provider] - 1-2 days Time of Disposition: 23:53
[2024-06-03] MEDS: ACETAMINOPHEN TAB 500 MG TAB PO STA (23:15)
[2024-06-03] MEDS: ALBUTEROL NEBULIZED 2.5 MG/3 ML INHALATION STA (23:17)
[2024-06-03] MEDS: IPRATROPIUM-ALBUTEROL 3 ML NEB INHALATION STA (23:17)
[2024-06-03 23:25] LABS: Influenza A Not Detected (Not Detectd); Influenza B Not Detected (Not Detectd); RSV Not Detected (Not Detectd)
[2024-06-04 00:04] VITALS: BP 160/54; PULSE 99
--- NOTE | 2024-06-04 01:15 | XR ---
EXAM: XR Chest, 2 Views CLINICAL HISTORY: ITS.REASON XR Reason: cough TECHNIQUE: Frontal and lateral views of the chest. COMPARISON: No relevant prior studies available. FINDINGS: Lungs: No consolidation or mass. Pleural space: No effusion. Heart: No cardiomegaly. Bones/joints: No acute findings. IMPRESSION: No acute cardiopulmonary process.
== END 2024-06-04 00:05 | disposition home or self-care (01) ==
LOC: EC 21:45
DX: J40 Bronchitis, not specified as acute or chronic (principal); E11.9 Type 2 diabetes mellitus without complications; I10 Essential (primary) hypertension; Z79.899 Other long term (current) drug therapy
CPT/HCPCS: 71046; 87636; 94640; 99285